=== PATIENT | female | born 2000 | race Caucasian/White ===

== ENCOUNTER 2023-07-13 15:04 | Emergency (ER) | payer OTHER, SELFPAY ==
--- NOTE | ~2023-07-13 | CT_ITS ---
EXAMINATION: CT abdomen pelvis w con DATE: 07/13/2023 16:51 INDICATION: diffuse abdominal pain TECHNIQUE: Computed tomography (CT) of the abdomen and pelvis was performed with 100 mL Omnipaque-350 intravenous contrast. Automated exposure control and iterative reconstruction technique were employe d. The dose-length product was 447.60 mGy-cm. COMPARISON: None. FINDINGS: Lower thorax: Unremarkable Liver: Normal. Biliary/Gallbladder: Gallbladder is normal. No bile duct dilation. Pancreas: No mass or duct dilation. Spleen: Normal. Adrenals:No mass. Kidneys: No mass, stone, or hydronephrosis. GI tract: Moderate distal esophageal and gastric wall edema. No small or large bowel dilation. Normal appendix. Mesentery/Peritoneum: No ascites, mass, or free air. Retroperitoneum: No mass. Pelvis: Mild bladder wall thickening in a partially distended urinary bladder. The remaining pelvic o rgans are within normal limits. Soft Tissues: Soft tissues and body wall unremarkable. Bones: No acute osseous finding. IMPRESSION: Moderate esophagitis/gastritis. Bladder wall thickening may be secondary to cystitis or inadequate distention. Reviewed, dictated and finalized at location K.
[2023-07-13 15:08] VITALS: BP 129/84; PULSE 83; RESP 15; TEMP 36.4; O2SAT 100
--- NOTE | 2023-07-13 15:29 | ED.ABDPAIN ---
HPI - Abdominal Pain General Chief Complaint: Abdominal Pain Stated Complaint: abdominal pain Time Seen by Provider: 07/13/23 15:10 Source: patient and RN notes reviewed Mode of arrival: ambulatory Limitations: no limitations History of Present Illness HPI narrative: This is a 22 year old female who presents for evaluation of abdominal pain. Patient states 2 weeks ago she went to her transitional care manager, Dr. Hathaway for possible retained tampon. She reports she was concerned about a retained tampon at that time due to increased white vaginal discharge. She reports that her transitional care manager did not find a tampon, but she was started on antibiotics for a UTI. She completed an unknown antibiotics 1 week ago. She reports intermittent lower abdominal pain for 1 week and her abdominal pain worsened today. She also reports loose stools since Saturday. She has not had stool today. She reports having 1 episode yesterday. She states eating makes her pain worse. She reports shooting pain to her upper abdomen as well. She denies nausea, vomiting, fever, chills. Related Data Allergies Allergy/AdvReac Type Severity Reaction Status Date / Time No Known Allergies Allergy Mild Verified 07/28/08 22:27 Review of Systems Constitutional: Constitutional: Denies weakness Cardiovascular: Cardiovascular: Denies syncope, Denies rapid heart rate, Denies irregular heart rhythm, Denies leg edema and Denies dyspnea Respiratory: Respiratory: Denies chest congestion, Denies hemoptysis, Denies excessive phlegm production and Denies dyspnea Gastrointestinal: Gastrointestinal: Reports abdominal pain, Denies hematochezia, Reports diarrhea and Denies vomiting Genitourinary: Genitourinary: Denies hematuria, Denies dysuria and Reports vaginal discharge Musculoskeletal: Musculoskeletal: Denies joint swelling, Denies loss of height and Denies muscle weakness Neurologic: Denies syncope, Denies focal weakness and Denies weakness PMFSH Past Medical History Medical History (Updated 07/13/23 @ 18:29 by Yoselin Stewart MD) Patient denies medical problems Surgical History Surgical History (Updated 07/13/23 @ 15:30 by Yoselin Stewart MD) No pertinent past surgical history Social History Social History (Updated 07/13/23 @ 15:30 by Yoselin Stewart MD) Smoking status: Never smoker Exam Const: General: no acute distress and alert Nutritional Appearance: well nourished Orientation/consciousness: patient oriented x3 Limitations: no limitations HENMT: Head: normal to inspection Face and sinus: normal facial exam Eyes: EOM: EOMs intact bilaterally Neck: Neck: normal visual inspection Chest: Chest palpation & inspection: normal inspection of the chest Resp: Effort & Inspection: normal respiratory effort Auscultation: clear to auscultation bilaterally Cardio: Rate: regular rate Rhythm: regular rhythm Heart sounds: no murmurs GI: GI Palp: Yes Soft to palpation, Yes Tenderness to palpation present (GI) (Diffuse), No Guarding due to palpation present (GI), No Rigid due to palpation and No Hernia present Auscultation: normal bowel sounds : External Female Exam: normal external appearance Speculum Exam - Cervix: Cervical os closed Bimanual exam- vagina & uterus: cervical motion tenderness Bimanual Exam- Adnexa, other: no masses OB/external & speculum: no herpetic lesions Other: copious amounts of yellow mucous discharge Back/Spine/Pelvis: Back: no CVA tenderness Skin: General skin exam: normal color Rashes: no rashes Wounds: no wounds Neuro: General: patient oriented x3, moves all extremities and CN's II-XI intact bilaterally Extrem: General: normal to inspection Psych: Mental Status: mental status grossly normal Affect: normal affect Attitude: cooperative Course Reevaluation(s) Reevaluation #1: I Discussed with patient CT shows signg of gastritis, esophagitis and she will be started on medication and she will need to follow u
[2023-07-13] MEDS: KETOROLAC 15 MG/ML VIAL (*BKC) IV PUSH (15:45)
[2023-07-13] MEDS: SODIUM CHLORIDE 0.9% IV 1,000 ML 999 ML IV CONT (15:45)
[2023-07-13 15:53] LABS: Basophils Absolute Auto 0.1 K/mm3 (0.0-0.1); Basophils Percent Auto 0.6 % (0.2-1.2); Eosinophils Absolute Auto 0.2 K/mm3 (0-0.3); Eosinophils Percent Auto 2.1 % (0-4.4); Hematocrit 39.3 % (37.0-47.0); Hemoglobin 13.8 g/dL (12.0-15.0); Immature Granulocyte Absolute 0.02 K/mm3 (0.00-0.031); Immature Granulocyte Percent A 0.2 % (0-0.5); Lymphocytes Percent Auto 25.7 % (18.3-44.2); Mean Corpuscular HGB Conc 35.1 g/dl (32-36); Mean Corpuscular Volume 85.4 fl (80-100); Mean Platelet Volume 10.6 fl (7.4-10.4); Monocytes Absolute Auto 0.5 K/mm3 (0.1-0.6); Neutrophils Absolute Auto 5.4 K/mm3 (1.3-6.7); Neutrophils Percent Auto 65.4 % (45.5-73.1); Platelet Count Result 286 k/mm3 (150-375); Red Cell Distribution Width 11.9 % (11.5-14.5); White Blood Count 8.2 K/mm3 (4.5-10.0)
[2023-07-13 16:03] LABS: Appearance Urine Cloudy (Clear); Bacteria Urine 1+ /hpf; Bilirubin Urine 1+ (Negative); Blood Urine Negative (Negative); Color Urine Dark Yellow (Yellow); Glucose Urine UA Negative (Negative); Ketones Urine Trace mg/dL (Negative); Leukocyte Esterase Ur Negative LEU/UL (Negative); Nitrate Urine Negative (Negative); Protein Urine 1+ mg/dL (Negative); RBC Urine 0-2 /hpf (0-2); Specific Grav Ur 1.034 (1.001-1.035); Squamous Epithelial Cell Urine Few /hpf (Few); pH Urine 5.5 (5.0-9.0)
[2023-07-13 16:05] LABS: Alanine Aminotransferase 19 U/L (6-35); Albumin Level 4.7 g/dL (3.5-5.1); Alkaline Phosphatase 58 U/L (38-126); Anion Gap 9 mmol/L (8-16); Aspartate Amino Transferase 28 U/L (14-36); Bilirubin,Total 0.8 mg/dL (0.2-1.3); Blood Urea Nitrogen 12 mg/dL (7-17); Calcium 9.4 mg/dL (8.4-10.2); Carbon Dioxide 22 mmol/L (22-30); Chloride 106 mmol/L (98-107); Estimated Glomerular Filt Rate > 60; Glucose 85 mg/dL (65-110); Lipase 50 U/L (23-300); Sodium 137 mmol/L (137-145)
[2023-07-13 16:13] LABS: Add Urine Microscopic? YES
--- NOTE | 2023-07-13 16:51 | PC.NURSE ---
pt returned to room [address] scan at this time
[2023-07-13 17:35] VITALS: BP 131/81; PULSE 95; RESP 18; O2SAT 99
[2023-07-13] MEDS: cefTRIAXone 1 GM VIAL 0.5 GM IM (18:35)
[2023-07-13 20:00] LABS: Trichomonas Vag PCR NOT DETECTED (NOT DETECTE)
[2023-07-15 11:04] LABS: Chlamydia trachomatis NOT DETECTED (NOT DETECTE); Neisseria gonorrhoeae PCR NOT DETECTED (NOT DETECTE)
== END 2023-07-13 18:48 | disposition home or self-care (01) ==
PROVIDERS: Emergency Provider General Practice
DX: K29.00 Acute gastritis without bleeding (principal); N73.0 Acute parametritis and pelvic cellulitis; K20.90 Esophagitis, unspecified without bleeding; R93.41 Abnormal radiologic findings on diagnostic imaging of renal pelvis, ureter, or bladder
CPT/HCPCS: 36415; 74177; 80053; 81001; 81025; 83690; 85025; 87086; 87088; 87491; 87591; 87661; 96361; 96372; 96374; 99284; J0696; J1885; J7030; Q9967

== ENCOUNTER 2024-06-09 10:35 | Emergency (ER) | payer OTHER, SELFPAY ==
--- NOTE | ~2024-06-09 | CT_ITS ---
CT abdomen pelvis w con Ordering provider: Alfonso Diana MD History: 23 years Female with . Right lower quadrant abdominal pain . Comparison: None. Technique: CT abdomen and pelvis with IV and without oral contrast. Automated exposure control and it erative reconstruction technique were employed. The dose-length product was 265.53 mGy-cm. 100 mL Omn ipaque 350 was given IV. Findings: VISUALIZED LOWER CHEST: Numerous nodules in both lung bases is noted.. Ossification of the patient ti mes UPPER ABDOMINAL ORGANS: Liver: Hepatomegaly. Gallbladder: Normal. Spleen: Normal. Stomach/duodenum: Normal. Pancreas: Normal. Adrenals: Normal. Kidneys: Normal. PELVIC ORGANS: The bladder is normal. BOWEL AND MESENTERY: Colon: No evidence of diverticulitis. Fecal material is seen in the colon suggestive of constipation. No evidence of appendicitis. Small Bowel: Fluid in the small bowel is seen which may indicate enteritis. No obstruction. Peritoneum/mesentery: No free air. Minimal free fluid in the pelvis. No mesenteric lymphadenopathy. RETROPERITONEUM: Normal aorta. Prominent left ovarian vein is noted No retroperitoneal lymphadenopat hy. MUSCULOSKELETAL: Superficial soft tissues: The superficial soft tissues are normal. Bones: Normal spine. IMPRESSION: 1. No evidence of appendicitis, diverticulitis or intestinal obstruction. 2. Fecal material loaded in the colon suggestive of constipation. 3. Prominent left ovarian vein which may indicate pelvic congestion syndrome. 4. Fluid in the small bowel which may indicate enteritis. 5. Hepatomegaly Reviewed, dictated and finalized at location A.
[2024-06-09 10:38] VITALS: BP 130/68; PULSE 75; RESP 16; TEMP 36.8; O2SAT 100
[2024-06-09 10:52] LABS: BEDSIDEPREGUCG Negative
[2024-06-09 11:08] LABS: Add Urine Microscopic? YES; Appearance Urine Cloudy (Clear); Bacteria Urine 3+ /hpf; Bilirubin Urine 1+ (Negative); Blood Urine Negative (Negative); Color Urine Dark Yellow (Yellow); Glucose Urine UA Negative (Negative); Ketones Urine Trace mg/dL (Negative); Leukocyte Esterase Ur Trace LEU/UL (Negative); Mucus Urine Present /lpf; Nitrate Urine Negative (Negative); Non Pathogenic Casts 0-2; Protein Urine 1+ mg/dL (Negative); RBC Urine 0-2 /hpf (0-2); Specific Grav Ur 1.025 (1.001-1.035); Squamous Epithelial Cell Urine Few /hpf (Few); pH Urine 5.5 (5.0-9.0)
[2024-06-09 11:17] LABS: Basophils Percent Auto 0.4 % (0.2-1.2); Eosinophils Absolute Auto 0.1 K/mm3 (0-0.3); Eosinophils Percent Auto 2.1 % (0-4.4); Hematocrit 38.1 % (37.0-47.0); Hemoglobin 12.8 g/dL (12.0-15.0); Immature Granulocyte Absolute 0.02 K/mm3 (0.00-0.031); Immature Granulocyte Percent A 0.3 % (0-0.5); Lymphocytes Absolute Auto 1.28 K/mm3 (0.9-3.2); Lymphocytes Percent Auto 19.2 % (18.3-44.2); Mean Corpuscular HGB Conc 33.6 g/dl (32-36); Mean Corpuscular Hemoglobin 29.8 pg (26-34); Mean Corpuscular Volume 88.6 fl (80-100); Mean Platelet Volume 10.6 fl (7.4-10.4); Monocytes Absolute Auto 0.7 K/mm3 (0.1-0.6); Monocytes Percent Auto 10.6 % (2.6-8.5); Neutrophils Absolute Auto 4.5 K/mm3 (1.3-6.7); Neutrophils Percent Auto 67.4 % (45.5-73.1); Platelet Count Result 206 k/mm3 (150-375); Red Cell Distribution Width 12.3 % (11.5-14.5); White Blood Count 6.7 K/mm3 (4.5-10.0)
[2024-06-09 11:29] LABS: Alanine Aminotransferase 12 U/L (6-35); Albumin Level 4.1 g/dL (3.5-5.1); Alkaline Phosphatase 51 U/L (38-126); Anion Gap 9 mmol/L (4-12); Aspartate Amino Transferase 17 U/L (14-36); Bilirubin,Total 0.6 mg/dL (0.2-1.3); Blood Urea Nitrogen 7 mg/dL (7-17); Calcium 8.7 mg/dL (8.4-10.2); Carbon Dioxide 26 mmol/L (22-30); Chloride 103 mmol/L (98-107); Estimated CRCL calculation 103 ml/min; Estimated Glomerular Filt Rate > 60; Glucose 85 mg/dL (65-110); Lipase 35 U/L (23-300); Potassium 3.4 mmol/L (3.4-5.0); Sodium 138 mmol/L (137-145)
[2024-06-09] MEDS: MORPHINE SULFATE (*CRX) 2 MG/ML INJ IV PUSH (13:17)
[2024-06-09] MEDS: ONDANSETRON INJ 4 MG/2 ML VIAL IV PUSH (13:17)
--- NOTE | 2024-06-09 14:56 | ED.ABDPAIN ---
HPI - Abdominal Pain General Chief Complaint: Abdominal Pain Stated Complaint: abd pain Time Seen by Provider: 06/09/24 11:55 History of Present Illness HPI narrative: This is a 23-year-old female, with no significant past medical history, presents emergency department complaining of right lower quadrant abdominal pain for the past 3 days. She states that it is began with nausea and vomiting without blood. She describes the pain as sharp and nonradiating. She denies bleeding, pain with urination, chest pain or shortness of breath. She has no other complaints at this time. Related Data Home Medications Medication Instructions Recorded Confirmed budesonide-formoterol HFA 160 inhalation 06/09/24 mcg-4.5 mcg/actuation aerosol inhaler levonorgestrel-ethinyl estradiol tablet 06/09/24 0.1 mg-20 mcg tablet loratadine 10 mg tablet (Claritin) 10 mg PO DAILY 06/09/24 06/09/24 Allergies Allergy/AdvReac Type Severity Reaction Status Date / Time No Known Allergies Allergy Mild Verified 06/09/24 11:30 Review of Systems Review of Systems: All systems reviewed & are unremarkable except as noted in HPI and below PMFSH Past Medical History Medical History Patient denies medical problems Surgical History Surgical History No pertinent past surgical history Social History Social History Smoking status: Never smoker Exam Narrative: GENERAL: Well-developed, well-nourished, and in no acute distress. HEAD: Normocephalic, atraumatic. EYES: PERRLA and EOMI. CHEST: Clear to auscultation. No respiratory distress. No wheezes rales or rhonchi HEART: Regular rate and rhythm. No murmur heard. Normal peripheral pulses. ABDOMEN: Soft, tender palpation in the right lower quadrant without rebound or guarding. Rovsing sign a positive, nondistended, normal active bowel sounds. Right CVA tenderness to palpation, no left CVA tenderness EXTREMITIES: Normal range of motion. No edema. SKIN: Warm, dry, no rash. NEURO: Alert and oriented x3. No focal deficit. Moving all 4 limbs spontaneously PSYCH: Normal mood and affect. Course Course Emergency Course: 15:00 - CT not concerning for acute intra-abdominal process. CBC unremarkable. Chemistries within normal limits. UA demonstrates changes consistent with urinary tract infection. test negative. Considering the patient's pain, I suspect pyelonephritis. Will discharge with pain medications, antibiotics and antiemetics. I discussed the findings and recommendations with the patient. Discussed return and emergency precautions including signs/symptoms of acute abdomen and intractable vomiting. The patient voiced understanding and agreement with the plan. All questions answered to her satisfaction. Vital Signs Vital signs: Vital Signs Temperature 98.3 F 06/09/24 10:38 Pulse Rate 75 06/09/24 10:38 Respiratory Rate 16 06/09/24 10:38 Blood Pressure 130/68 06/09/24 10:38 Pulse Oximetry 100 06/09/24 10:38 Oxygen Delivery Room Air 06/09/24 10:38 Temperature 98.3 F 06/09/24 10:38 Pulse Rate 75 06/09/24 10:38 Respiratory Rate 16 06/09/24 10:38 Blood Pressure 130/68 06/09/24 10:38 Pulse Oximetry 100 06/09/24 10:38 Oxygen Delivery Room Air 06/09/24 10:38 MDM - Abdominal Pain MDM Narrative Medical decision making narrative: Plan: Labs, imaging, pain control, test, reassess Differential Diagnosis Differential diagnosis: Likely acute appendicitis, calculus of kidney, constipation, diverticulitis, gastroenteritis, pancreatitis, small bowel obstruction and other (Pyelonephritis, metabolic abnormality, , other) Lab Data 06/09/24 11:02 06/09/24 11:02 Labs: Lab Results 06/09/24 06/09/24 06/09/24 Range/Units 10:45 10:46
== END 2024-06-09 15:16 | disposition home or self-care (01) ==
PROVIDERS: Emergency Medicine; Emergency Provider Preventive Medicine Aerospace Medicine
DX: N12 Tubulo-interstitial nephritis, not specified as acute or chronic (principal); Z79.899 Other long term (current) drug therapy
CPT/HCPCS: 36415; 74177; 80053; 81001; 81025; 83690; 85025; 87086; 96374; 96375; 99284; J2270; J2405; Q9967

== ENCOUNTER 2024-08-08 18:30 | Emergency (ER) | payer OTHER, SELFPAY ==
[2024-08-08 18:42] VITALS: BP 117/68; PULSE 64; RESP 16; TEMP 36.5; O2SAT 100
--- NOTE | 2024-08-08 18:43 | ED.SKABFB ---
HPI - Skin/Abscess/Foreign Bdy General Chief complaint: Skin/Abscess/Foreign Body Stated complaint: rash on body,itching Time Seen by Provider: 08/08/24 18:43 Source: patient, RN notes reviewed and old records reviewed Mode of arrival: ambulatory Limitations: no limitations History of Present Illness HPI narrative: Patient with complaints of it she papular rash that began suddenly today, covers the whole body. She denies any associated wheezing or shortness of breath. She denies any known history of food or drug allergies. She denies any new food, drink, or medication in the past couple of days. She denies any change in lotions, soaps, perfumes, detergents. She has no other concerns at this time Related Data Home Medications Medication Instructions Recorded Confirmed budesonide-formoterol HFA 160 See Rx Instructions .Route .COMPLEX 06/09/24 08/08/24 mcg-4.5 mcg/actuation aerosol inhaler levonorgestrel-ethinyl estradiol 1 tablet PO DAILY 06/09/24 08/08/24 0.1 mg-20 mcg tablet loratadine 10 mg tablet (Claritin) 10 mg PO DAILY 06/09/24 08/08/24 Allergies Allergy/AdvReac Type Severity Reaction Status Date / Time No Known Allergies Allergy Mild Verified 08/08/24 18:36 Review of Systems Review of Systems: All systems reviewed & are unremarkable except as noted in HPI and below Constitutional: Constitutional: Reports no additional constitutional complaints ENT: Reports system reviewed and no additional complaints, except as documented Cardiovascular: Cardiovascular: Reports no additional cardiovascular complaints Respiratory: Respiratory: Reports no additional respiratory complaints Gastrointestinal: Gastrointestinal: Reports no additional gastrointestinal complaints Integumentary/Breasts: Skin/Breast: Reports pruritus and Reports rash PMFSH Past Medical History Medical History Patient denies medical problems Surgical History Surgical History No pertinent past surgical history Social History Social History Smoking status: Never smoker Comments At the time of my signature, I reviewed and agree with the nursing past medical, surgical, social, and family history. There is no relevant family history pertinent to the patient complaint. Exam Const: General: cooperative, no acute distress, alert and awake Orientation/consciousness: oriented to person, oriented to place and oriented to time HENMT: Head: normal to inspection Mouth: Yes Normal oral and palatal mucosa present, Yes lip normal and Yes moist mucous membranes Resp: Effort & Inspection: normal respiratory effort and able to speak in complete sentences Auscultation: clear to auscultation bilaterally, no crackles, no rales, no rhonchi and no wheezes Cardio: Palpation: normal PMI Rate: regular rate Rhythm: regular rhythm Heart sounds: S1 normal heart sound present and S2 normal heart sound present Skin: Rashes: rashes noted Neuro: General: oriented to person, oriented to place and oriented to time Cranial nerves: Yes CN's II-XII intact bilaterally Psych: Appearance: grossly normal Thought process: Normal thought process present Insight: Good insight present (Psych) Judgement: Good judgement present (Psych) Course Course Level of Care: Express Care Visit Vital Signs Vital signs: Reviewed MDM - Skin/Abscess/Foreign Bdy MDM Narrative Medical decision making narrative: Patient with generalized papular rash. She does not have any known allergic triggers, but did eat at a restaurant last night, so unsure if she ate a new food mixed in to her dish. She does not have any wheezing or shortness of breath. She appears stable for discharge home with strict emergency department precautions. Start prednisone, Pepcid, Benadryl. First dose prednisone given in clinic. Jose Angel
[2024-08-08] MEDS: predniSONE 20 MG TABLET 60 MG PO (19:02)
== END 2024-08-08 19:08 | disposition home or self-care (01) ==
PROVIDERS: Emergency Provider Nurse Practitioner Family
DX: T78.40XA Allergy, unspecified, initial encounter (principal)
CPT/HCPCS: 99213; G0463; J7512

== ENCOUNTER 2024-12-10 20:21 | Emergency (ER) | payer OTHER, SELFPAY ==
--- NOTE | ~2024-12-10 | XR_ITS ---
HISTORY: ankle injury NO FALL NO TRAUMA COMPARISON: None TECHNIQUE: 3 views of the right ankle were performed FINDINGS: No acute fracture or dislocation. No significant soft tissue swelling. The ankle mortise is preserved. Bone mineralization is age-appropriate. IMPRESSION: Unremarkable plain film evaluation of the right ankle, as detailed above. Reviewed, dictated and finalized at location A. [facility]
--- OUTSIDE RECORDS SUMMARY | 2024-12-10 20:23 | XMS_ITS | Clinical Summary ---
Author Organization 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
--- OUTSIDE RECORDS SUMMARY | 2024-12-10 20:23 | XMS_ITS | Referral Summary ---
Author Organization [facility] Address [address] [address] Phone Care Team Providers Care Mechanical Handyman Name Role Phone Noemi Perez MD Primary Care Provider Elisha Hathaway MD Unavailable [phone] Allergies Active Allergy Reactions Criticality Noted Date Comments Cat Dander Sneezing Low 08/09/2022 Dog Dander Sneezing Low 08/09/2022 Tree And Shrub Pollen Sneezing Low 08/09/2022 Medications albuterol HFA (PROVENTIL HFA,VENTOLIN HFA,PROAIR HFA) 90 mcg/actuation inhaler Inhale 1 puff as needed 8 Active budesonide-formoter oL (SYMBICORT) 160-4.5 mcg/actuation inhaler Inhale 2 puffs 2 (two) times a day 0 Active levonorgestreL-ethi nyl estrad (LUTERA) 0.1-20 mg-mcg per tablet 2 Active loratadine (CLARITIN) 10 mg tablet Take 1 tablet (10 mg total) by mouth daily Active ondansetron ODT (ZOFRAN-ODT) 4 mg disintegrating tablet Take 1 tablet (4 mg total) by mouth every 8 (eight) hours as needed for nausea or vomiting 20 tablet 4 Active Active Problems Problem Noted Date Diagnosed Date Asthma 11/06/2016 Allergic rhinitis 11/06/2016 Resolved Problems Problem Noted Date Diagnosed Date Resolved Date Coccydynia 02/09/2016 08/09/2022 Immunizations Name Administration Dates Next Due DTaP, Unspecified 03/03/2007, 3,05/21/2002,03/24/2002,0 01/21/2002 HPV, Quadrivalent 08/10/2016,07/25/2015 Hep A, Unspecified 05/15/2012,05/22/2010 Hep B, Unspecified 11/23/2002,03/24/2002, 002,2001 HiB 11/23/2002,03/24/2002,01/21/2002 Influenza, Split 10/18/2023 Influenza, Unspecified 08/16/2022,2019,10/15/2018,09/16/2008,1 11/13/2006 MMR 03/03/2007,11/23/2002 Meningococcal B, OMV (Bexsero) 03/26/2019,2018 Meningococcal MCV4P (Menactra) 12/19/2017,2012 Pneumococcal Conjugate PCV 13 11/23/2002, 002,03/24/2002,01/21/2002 Polio, Unspecified 03/03/2007,05/21/2002, 002,01/21/2002 Tdap 07/03/2022,05/15/2012 Varicella 02/16/2003 Social History Tobacco Use Types Packs/Day Years Used Date Smoking Tobacco: Never Smokeless Tobacco: Never Tobacco Cessation:Counseling Given: Not Answered AUDIT-C Answer Date Recorded Q1: How often do you have a drink containing alcohol? Never 08/09/2022 Q2: How many drinks containi ng alcohol do you have on a typical day when you are drinking? Patient does not drink Q3: How often do you have si x or more drinks on one occasion? Never 08/09/2022 PHQ-2 Answer Date Recorded PHQ-2 Total Score (If total score is 3 or more points, staff should administer the PHQ-9) 0 10/21/2023 Personal Safety Answer Date Recorded Getting School Help Needed Not on file 10/21 Comments No Sex and Gender Information Value Date Recorded Sex Assigned at Not on file Legal Sex Female 11:30 AM CDT Gender Identity Female 07/09/2023 10:32 AM CDT Sexual Orientation Straight 07/09/2023 10 :32 AM CDT Last Filed Vital Signs Vital Sign Reading Time Taken Comments Blood Pressure 106/58 12/17/2023 11:07 AM DIESEL DINKEY ENGINEER Pulse 109 12/17/2023 11:07 AM DIESEL DINKEY ENGINEER Temperature 36.8 C (98.3 F) 12/17/2023 11:07 AM DIESEL DINKEY ENGINEER Respiratory Rate 22 12/17/2023 11:07 AM DIESEL DINKEY ENGINEER Oxygen Saturation 97% 12/17/2023 11:07 AM DIESEL DINKEY ENGINEER Inhaled Oxygen Concentration - - Weight 72.1 kg (159 lb) 12/17/2023 11:07 AM DIESEL DINKEY ENGINEER Height 160 cm (5' 3 ) 12/17/2023 11:07 AM DIESEL DINKEY ENGINEER Body Mass Index 28.17 12/17/2023 11:07 AM DIESEL DINKEY ENGINEER Plan of Treatment Not on file Insurance [facility] [employer] Care Teams Mechanical Handyman Relationship Specialty Start Date End Date Noemi Perez MD PCP - General Family Practice 08/06/22 Elisha Hathaway MD [address] [address] Referring Physician Gynecology 08/09/22
--- OUTSIDE RECORDS SUMMARY | 2024-12-10 20:23 | XMS_ITS | Continuity of Care Document ---
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 Role Phone Man Munson MD Unavailable Unavailable Allergies, Adverse Reactions, Alerts Substance Reaction Status Criticality No Known Allergies Active No Inform ation Medications Medication Instructions Dosage Effective Dates (start - stop) Status Comments Symbicort 160 mcg-4.5 mcg/actuation HFA aerosol inhaler inhale 2 puff by inhalation route 2 times every day in the morning and evening 2.00 puff - Active ProAir HFA 90 mcg/actuation aerosol inhaler INHALE 2 PUFF BY INHALATION ROUTE EVERY 4 - 6 HOURS NEEDED - Active loratadine 10 mg tablet - Active Lutera (28) 0.1 mg-20 mcg tablet take 1 tablet by oral route every day 1.00 tablet - Active Procedures Procedure Date HEALTH RISK ASSESSMENT, PATIENT-FOCUSED OFFICE [id number] BODY MASS INDEX DOCD SYST BP LT 130 MM HG DIAST BP 80-89 MM HG MOUTHPIECE SPIROMETRY BEFORE & AFTER BRONCHODIALATO R HEALTH RISK ASSESSMENT, PATIENT-FOCUSED OFFICE [id number] BODY MASS INDEX DOCD SYST BP LT 130 MM HG DIAST BP < 80 MM HG MOUTHPIECE SPIROMETRY BEFORE & AFTER BRONCHODIALATO R HEALTH RISK ASSESSMENT, PATIENT-FOCUSED OFFICE [id number] BODY MASS INDEX DOCD SYST BP LT 130 MM HG DIAST BP 80-89 MM HG MOUTHPIECE RESPIRATORY FLOW VOLUME LOOP HEALTH RISK ASSESSMENT, PATIENT-FOCUSED OFFICE [id number] MOUTHPIECE RESPIRATORY FLOW VOLUME LOOP HEALTH RISK ASSESSMENT, PATIENT-FOCUSED OFFICE [id number] BODY MASS INDEX DOCD SYST BP LT 130 MM HG DIAST BP 80-89 MM HG MOUTHPIECE RESPIRATORY FLOW VOLUME LOOP HEALTH RISK ASSESSMENT, PATIENT-FOCUSED OFFICE [id number] BODY MASS INDEX DOCD SYST BP LT 130 MM HG DIAST BP < 80 MM HG MOUTHPIECE RESPIRATORY FLOW VOLUME LOOP ALLERGY SKIN TESTS ALLERGY SKIN TESTS ID OFFICE [id number] HEALTH RISK ASSESSMENT, PATIENT-FOCUSED OFFICE [id number] BODY MASS INDEX DOCD SYST BP GE 130 - 139MM HG DIAST BP 80-89 MM HG PULMONARY SPIROMETRY, FUNCTION MOUTHPIECE HEALTH RISK ASSESSMENT, PATIENT-FOCUSED OFFICE [id number] Additional supplies, materials, & Clinic al Staff Time During A PHE BODY MASS INDEX DOCD SYST BP LT 130 MM HG DIAST BP < 80 MM HG RESPIRATORY FLOW VOLUME LOOP MOUTHPIECE HEALTH RISK ASSESSMENT, PATIENT-FOCUSED OFFICE [id number] BODY MASS INDEX DOCD SYST BP LT 130 MM HG DIAST BP < 80 MM HG MOUTHPIECE RESPIRATORY FLOW VOLUME LOOP HEALTH RISK ASSESSMENT, PATIENT-FOCUSED OFFICE [id number] BODY MASS INDEX DOCD PULMONARY SPIROMETRY, FUNCTION 19 MOUTHPIECE HEALTH RISK ASSESSMENT, PATIENT-FOCUSED OFFICE [id number] BODY MASS INDEX DOCD PULMONARY SPIROMETRY, FUNCTION 19 MOUTHPIECE Advance Directives Directive Yes / No Effective Date File Name No Information Encounters Encounter Description Practice Location Reason(s) For Visit Diagnoses Date Provider Providers Copied on Encounter [employer], [address], [place], [place], [id number] , tel: [phone] [facility] No Information 4 Munsonkareem Conway. [address] , [facility] [address], [place], [place], [address] , . tel: [phone] [facility], [address], [place], [place], [address] , tel: [phone] [facility] No Information 4 Munsonkareem Conway. [address] , [facility] [address], [place], [place], [id number] , [place]. tel: [phone] OFFICE BLXZD-HQN-OU TAILED [facility], [address], [place], [place], [id number] , tel: [phone] [facility]hma & Allergies (chief complaint) Moderate persistent asthma, uncomplicatedAllerg ic rhinitis due to pollenAllergic rhinitis due to animal hair or danderAllergy to mold 4 Vicki Jiménez . [address] [place], [place], [address] , . tel: [phone] Referring Provider: [address], [place], [address]. tel:[phone] OFFICE GIQGW-VNC-KT PANDED [facility], [address] [place] [address], [id number] , tel: [phone] [facility]ergies (chief complaint) Moderate persistent asthma, uncomplicatedAllerg ic rhinitis due to pollenAllergic rhinitis due to animal hair or danderAllergy to mold Dec-0 - 3 Munsonkareem Conway. [address] [place] [address], [id number] , . tel: [phone] Referring Provider: [address], [place], [address]. tel:[phone] OFFICE TZOGU-ODZ-FI TAILED [facility], [address], [place], [place], [address] , tel: [phone] [facility] asthma (chief complaint) allergy f/u (chief complaint) asthma (chief complaint) Moderate persistent asthma, uncomplicatedAllerg ic rhinitis due to pollenAllergic rhinitis due to animal hair or danderAllergy to mold Dimitrios-0 3 Gonzalez Irizarry. [address], [id number] , . tel: [phone] Referring Provider: [address], [place], [address]. tel:[phone] OFFICE XSWZE-DAQ-LJ TAILED [facility], [address], [place], [address] , tel: [phone] [facility] asthma (chief complaint) allergy f/u (chief complaint) Moderate persistent asthma, uncomplicatedAllerg ic rhinitis due to pollenAllergic rhinitis due to animal hair or danderAllergy to mold Dec-0 2 Gonzalez Irizarry. [address], [id number] , . tel:[phone] Referring Provider: Noemi Perez , [address] [address], [place], [address]. tel:[phone] OFFICE MHIIG-KQU-GK [facility], [address], [place], [place], [address] , tel:[phone] [facility] asthma (chief complaint) asthma-con trol (chief complaint) allergy f/u (chief complaint) Moderate persistent asthma, uncomplicatedAllerg ic rhinitis due to pollenAllergic rhinitis due to animal hair or danderAllergy to mold 2 Gonzalez Irizarry. [address] [place] [address], [id number] , . tel:[phone] Referring Provider: Francisco Javier العلي, [address] [place] [address] [address], [place], [address] . tel:[phone] OFFICE [id number]-COX-SC TAILED [facility], [address] [facility], [place], [place], [address] , [place] [phone] [facility] asthma (chief complaint) Asthma-con trol (chief complaint) allergies (chief complaint) Moderate persistent asthma, uncomplicatedAllerg ic rhinitis due to pollenAllergic rhinitis due to animal hair or dander 1 Gonzalez Irizarry. [address] [place] [address], [id number] , [place]. tel:[phone] Referring Provider: Francisco Javier العلي, [address] [place] [address] [address], [place], [address] . tel:[phone] OFFICE [id number]-XMQ-HG PANDED [facility], [address], [place], [address] , [place] tel:[phone] [facility] allergies (chief complaint) asthma (not seen for this today) (chief complaint) Allergic rhinitis due to pollenAllergic rhinitis due to animal hair or danderAllergy to mold 1 Gonzalez Irizarry. [address] [place] [address], [id number] , . tel:[phone] Referring Provider: Francisco Javier العلي, [address], [place], [address] . tel:[phone] OFFICE HJFVA-ENR-AA [facility], [address], [place], [place], [address] , tel: [phone] [facility] asthma (chief complaint) Asthma-con trol (chief complaint) allergies (chief complaint) Moderate persistent asthma, uncomplicatedAllerg ic rhinitis due to pollenAllergic rhinitis due to animal hair or dander Dimitrios-2 [address] [place] [address], [id number] , . tel:[phone] Referring Provider: Francisco Javier العلي, [address], [place], [address] . tel:[phone] [facility], [address], [place], [place], [address] , tel: [phone] [facility] asthma (chief complaint) Asthma-con trol (chief complaint) allergies (chief complaint) Moderate persistent asthma, uncomplicatedAllerg ic rhinitis due to pollenAllergic rhinitis due to animal hair or dander Dec-0 0 Gonzalez Irizarry. [address], [id number] , . tel:[phone] Referring Provider: Francisco Javier العلي, [address], [place], [address] . tel:[phone] OFFICE DKFXX-KSE-TA [facility], [address], [place], [place], [address] , tel:[phone] [facility] asthma (chief complaint) Asthma-con trol (chief complaint) allergies (chief complaint) Moderate persistent asthma, uncomplicatedAllerg ic rhinitis due to pollenAllergic rhinitis due to animal hair or dander Dimitrios- 0 Gonzalez Irizarry. [address], [id number] , [place]. tel: [phone] Referring Provider: Chelsea Logan, [address], [place], [address]. tel:[phone] OFFICE QACYN-LRW-TN [facility], [address], [place], [place], [address] , [place] tel: [phone] [facility] asthma (chief complaint) Asthma-con trol (chief complaint) allergies (chief complaint) Moderate persistent asthma, uncomplicatedAllerg ic rhinitis due to pollenAllergic rhinitis due to animal hair or dander 9 Gonzalez Irizarry. [address], [id number] , [place]. tel: [phone] Referring Provider: Francisco Javier العلي, [address], [place], [address] . tel:[phone] OFFICE TKHWP-TQD-VW [facility], [address], [place], [place], [address] , [place] tel: [phone] [facility] (chief complaint) Asthma-con trol (chief complaint) allergies (chief complaint) Moderate persistent asthma, uncomplicatedAllerg ic rhinitis due to pollenAllergic rhinitis due to animal hair or dander 9 Gonzalez Irizarry. [address] [facility], [address], [id number] , [place]. tel: [phone] Referring Provider: [address], [place], [address] . tel:[phone] [facility], [address], [place], [place], [address] , [place] tel: [phone] [facility] Moderate persistent asthma, uncomplicatedAllerg ic rhinitis due to pollenAllergic rhinitis due to animal hair or dander 8 Gonzalez Irizarry. [address] [facility], [address], [id number] , . tel: [phone] Referring Provider: [address], [place], [address] . tel:[phone] [employer], [address], [place], [place], [address] , tel: [phone] [facility] Moderate persistent asthma, uncomplicatedAllerg ic rhinitis due to pollenAllergic rhinitis due to animal hair or dander 8 Gonzalez Irizarry. [address] [facility], [address], [id number] , . tel: [phone] Referring Provider: Francisco Javier العلي, [address] [place] [address] [address], [place], [address] . tel:[phone] [employer], [address], [place], [place], [address] , tel: [phone] [facility] Allergic rhinitis due to pollenAllergic rhinitis due to animal hair or danderMild persistent asthma, uncomplicated 7 Shine Inessa . [address] [place] [address], [address], [id number] , . tel: [phone] Referring Provider: Juan C Roth, [address] [place] [address], [address] . tel:[phone] [employer], [address], [place], [place], [address] , tel: [phone] [facility] Mild persistent asthma, uncomplicatedAllerg ic rhinitis due to pollenAllergic rhinitis due to animal hair or dander 7 Silvestre Wylie . [address] [place] [address], [address], [id number] , . tel: [phone] Referring Provider: Juan C Roth, [address] [place] [address], [address] . tel:[phone] [employer], [address] [place] [address], [id number] , tel: [phone] [facility] Mild persistent asthma, uncomplicatedAllerg ic rhinitis due to pollenAllergic rhinitis due to animal hair or dander 6 Gonzalez Irizarry. [address] [place] [address], [address], [id number] , . tel: [phone] Referring Provider: Chelsea Logan [address] [facility] [address], [place], [address]. tel:[phone] [facility], [address], [place], [place], [address] , tel: [phone] [facility] Mild persistent asthma, uncomplicatedAllerg ic rhinitis due to pollenAllergic rhinitis due to animal hair or dander Dec-3 Gonzalez Irizarry. [address] [facility], [address], [id number] , . tel: [phone] Referring Provider: Chelsea Logan [address] [facility] [address], [place], [address]. tel:[phone] [facility], [address], [place], [place], [address] , tel: [phone] [facility] INTRINSIC ASTHMA, UNSPECIFIEDAllergic rhinitis due to other allergen Jan-0 Gonzalez Irizarry. [address], [id number] , . tel: [phone] Referring Provider: Samantha Nixon [address] [facility] [address], [place], [address]. tel:[phone] [facility], [address], [place], [address] , tel: [phone] [facility] INTRINSIC ASTHMA, UNSPECIFIEDAllergic rhinitis due to other allergenAcute atopic conjunctivitis Dimitrios-0 Gonzalez Irizarry. [address] [facility], [address], [id number] , . tel: [phone] Referring Provider: Samantha Nixon, [address] [facility] [address], [place], [address]. tel:[phone] [facility], [address], [place], [address] , tel: [phone] [facility] INTRINSIC ASTHMA, UNSPECIFIEDAllergic rhinitis due to other allergenAcute atopic conjunctivitis 3 Gonzalez Irizarry. [address] [facility], [address] [address], [place], [place], [address] , [place]. tel: [phone] Referring Provider: [address], [place], [address]. tel:[phone] Family History Family Member Type Diagnosis Age At Onset Brother Problem (finding) Allergies, environmenta l Payers Payer name Insurance type Covered democrat ID Leila giron(s) [facility] RAILG-CON ACCOUNTS CI [id number] Social History Type Description Quantity Date Captured Comments Alcohol Use Details Unknown Caffeine Use Details Unknown Tobacco Use Status No Information Smoking Status No Information Sex Female Chief Complaint And Reason For Visit No Information Reason For Referral Reason For Referral No Information Plan Of Treatment Date Type Action Status Appointment Lisbeth Horta - Yearly B OOKED History Of Present Illness Encounter Date Complaint History Of Prese nt Illness Asthma & Allergies Lisbeth is a 23 year old seen for follow-up of her diagnosis of asthma and allergies.Lisbeth is happy to report that she is doing well. She is not playing soccer any more and feels her symptoms are well controlled. She has no symptoms of cough, wheezing or shortness of breath. She takes Symbicort twice a day & used her albuterol last month for her allergies and was staying outdoor. There has been no ED visits, hospitalization or steroid bursts for asthma-related symptoms. She has no nasal allergy symptoms to report. Reports her spring was unremarkable. She takes Claritin as needed for her allergy symptoms and is not taking Flonase since her symptoms are well controlled. She has 2 dogs at her mom's house.ACT score = 24No fevers, vomiting or diarrhea.05/24/2021 Skin Testing: Allergens: TREES, GRASS, WEED/RAGWEED, MOLD (Alternaria), CAT, and DOG dander Asthma & Allergies Lisbeth is a 22 year old seen for follow-up of her diagnosis of asthma and allergies.Lisbeth is happy to report that she is doing well. She has no symptoms of cough, wheezing or shortness of breath. She takes Symbicort twice a day & there has been no albuterol use. There has been no ED visits, hospitalization or steroid bursts for asthma-related symptoms.She has no nasal allergy symptoms to report. She takes Claritin daily and Flonase as needed for increased allergy symptoms. She has a dog at her mom's and a cat at her dad's house.No fevers, vomiting or diarrhea.05/24/2021 Skin Testing: Allergens: TREES, GRASS, WEED/RAGWEED, MOLD (Alternaria), CAT, and DOG dander Comments: Last o ffice visit 10/11/22 and before this on 04/05/22. Remains on Symbicort 160/4.5, 2 puffs twice daily with good control. Proair MDI seldom. No problems with exercise usually but had some trouble earlier this spring (see phone call 03/18/23) and had to increase Symbicort to qid briefly with good results. Had flu shot last fallVaccinated for COVID x 2 No COVID infections. Senior this fall (2022) at [employer] this spring. 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 Comments: Allerg ens: TREES, GRASS, WEED/RAGWEED, MOLD (Alternaria), CAT, and DOG dander (05/24/21)Indoor dog x 2 (not in bedroom) at mom's house and indoor cat at dad's house. 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 Not interested in allergy shots yet. No sinusitis in the interim. allergy f/u asthma asthma Comments: Allerg ens: TREES, GRASS, WEED/RAGWEED, MOLD (Alternaria), CAT, and DOG dander (05/24/21)Indoor dog x 2 (not in bedroom) at mom's house and indoor cat at dad's house. 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 Not interested in allergy shots yet. No sinusitis in the interim. asthma Comments: Last o ffice visit 04/05/22 and before this on 10/17/21. Remains on Symbicort 160/4.5, 2 puffs twice daily with good control. Proair seldom now even for exercise. 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 Had flu shot this fallVaccinated for COVID x 2 No COVID infections. 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 allergy f/u Comments: Last o ffice visit 10/17/21 and before this on 05/24/21 (testing) Remains on Symbicort 160/4.5, 2 puffs twice daily with good control. Proair seldom now. Cristhian this fall moving on to [employer] instead of [employer] (and still exercising but will not be playing soccer)Had flu shot last fall and has been vaccinated for COVID x 2 ([employer]) but no booster. No COVID infection. 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 Comments: Allerg ens: TREES, GRASS, WEED/RAGWEED, MOLD (Alternaria), CAT, and DOG dander (05/24/21)Indoor dog x 1 (not in bedroom). Not around dad's cat much. 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 babysitting but just for one family now so not exposed to much.Meds: Loratadine 10 mg and add Fluticasone nasal spray for more symptoms. Not interested in allergy shots yet. Still spending a lot of time outside. No sinusitis in the interim. asthma asthma-control allergy f/u Asthma-control Lisbeth was see n today for asthma management. Her asthma is classified as Moderate Persistent.Since Her last visit for asthma control on 05/24/2021, She has had asthma related:-hospitalizations: NO-ER/Urgent care visits: NO-oral steroids: NO-rescue inhaler use: YES-Missed school/work: NOAsthma Control Test score: 201. Unlimited activity: None of the time (5)2. Caused shortness of breath: Once or twice a week (4)3. Interrupted sleep: Once or twice (4)4. How often using rescue med: 2 or 3 times per week (3)5. Personal rating of control: Well controlled (4)The asthma is .Known triggers include: animals, colds and exercise.Environmental exposure/control:Smoker: NOTobacco exposure: YESPets/animals: YES, 2 DOGSSpirometry was last performed on 04/25/2021. Results - MILDLY OBSTRUCTED.. allergies asthma asthma (comments) Last office vi sit 05/24/21 (testing) and before this on 04/25/21Remains on Symbicort 160/4.5, 2 puffs twice daily with good control. Proair seldom now. Has sore throat a couple of weeks ago and some increase in SOB. Went to and treated with antibiotics (neg for strep, flu, covid though)Lesly. 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 Then will be on to [employer] in instead (?still some soccer)Had flu shot again this fall and has been vaccinated for COVID x 2 ([employer]) Went to [employer] for soccer this past season. allergies (comments) Allergens: TREES, GRASS, WEED/RAGWEED, MOLD (Alternaria), CAT, and DOG dander (05/24/21)Indoor dogs x 2 (not in bedroom). Not around dad's cat much. 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 babysitting but just for one family now so not exposed to much.Meds: Loratadine 10 mg and add Fluticasone nasal spray for more symptoms. Did not add Montelukast (Singulair) as a third option for increasing symptoms in the spring/fall seasons. Not interested in allergy shots at this time.Spends a lot of time outside. No sinusitis in the interim. allergies asthma (not seen for this today) allergies (comments) Last office visit 04/25/21 and before this on 10/05/20Returning today for further evaluation of her allergies with skin testing.Allergens: TREES, CAT, and DOG only (03/11/13) Indoor dogs x 2 (not in bedroom). 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 Not around dad's cat much. Uses Loratadine 10 mg once daily year round with good results (off past week for testing). Uses Fluticasone nasal spray 1 puff each nostril prn for increased symptoms this spring (off now). More difficulty with tree pollen this spring (spent more time inside) and was not on soccer field - season will be in the fall from now on.No sinusitis in the interim. asthma (not seen for this today) (comments) Remains on Symbicort 160/4.5, 2 puffs twice dailyTakes Proair before soccer with good results asthma allergies asthma (comments) Last office vi sit 10/05/20 and before this on 04/20/20. Remains on Symbicort 160/4.5, 2 puffs twice daily More asthma trouble spring likely triggered by increase in allergen exposures.Takes Proair before soccer with good results - but none recently out of seasonShe denies nocturnal or heating and cooling technician symptomsNo problems with URIs usually.Lesly. 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 Then to [employer] in instead and no soccer.Had flu shot last fall In 07/18/20 having trouble with exertion and within 5 minutes of starting to warm up run has SOB and onset of stridor, no change in voice, but tightness in chest. No better with the Proair. 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 Got better on own and with treatment of her allergy symptoms. allergies (comments) Allergens: TREES, CAT, and DOG only (03/11/13) Indoor dogs x 2 (not in bedroom). Walks the dogs. Not around dad's cat much. 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 Also works at [employer].Uses Loratadine 10 mg once daily year round with good results. In past used Fluticasone nasal spray 1 puff each nostril prn (off now) for increased symptoms this spring. More difficulty with tree pollen this spring (spent more time inside) but not on soccer fieldNo sinusitis in the interim. Asthma-control Lisbeth was see n today for asthma management. Her asthma is classified as Moderate Persistent.Since Her last visit for asthma control on 10/05/2020, She has had asthma related:-hospitalizations: NO-ER/Urgent care visits: NO-oral steroids: NO-rescue inhaler use: YES-Missed school/work: NOAsthma Control Test score: 231. Unlimited activity: None of the time (5)2. Caused shortness of breath: Once or twice a week (4)3. Interrupted sleep: Not at all (5)4. How often using rescue med: Once a week or less (4)5. Personal rating of control: Completely controlled (5)The asthma is Well Controlled.Known triggers include: animals, colds and exercise.Environmental exposure/control:Smoker: NOTobacco exposure: YESPets/animals: YES, 2 DOGSSpirometry was last performed on 10/05/2020. Results - MILDLY OBSTRUCTED. allergies Asthma-control Lisbeth was see n today for asthma management. Her asthma is classified as Moderate Persistent.Since Her last visit for asthma control on 04/20/2020, She has had asthma related:-hospitalizations: NO-ER/Urgent care visits: NO-oral steroids: NO-rescue inhaler use: YES-Missed school/work: NOAsthma Control Test score: 241. Unlimited activity: None of the time (5)2. Caused shortness of breath: Not at all (5)3. Interrupted sleep: Not at all (5)4. How often using rescue med: Not at all (5)5. Personal rating of control: Well controlled (4)The asthma is Well Controlled.Known triggers include: animals, colds and exercise.Environmental exposure/control:Smoker: NOTobacco exposure: YESPets/animals: YES, 2 DOGSSpirometry was last performed on 04/20/2020. Results - MILDLY OBSTRUCTED. allergies (comments) Allergens: TREES, CAT, and DOG only (03/11/13) Indoor dogs x 2 (not in bedroom). Walks the dogs. Not around dad's cat much.Uses Loratadine 10 mg once daily year round with good results. In past used Fluticasone nasal spray 1 puff each nostril prn (off now) for increased symptoms this spring. More difficulty with tree pollen this spring (spent more time inside) but not on soccer fieldNo sinusitis in the interim. asthma asthma (comments) Last office vi sit 04/20/20 and before this on 10/26/19 Remains on Symbicort 160/4.5, 2 puffs twice daily (she prefers MDI over DPI Advair 250/50) since 10/26/19Has been off the Montelukast 10 mg once daily (but off this past month after reading the label) but no increase in asthma symptoms presently. 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 Had flu shot this fall.Phone call on 07/18/20 after which we added Montelukast 10 mg qd: Was having trouble with exertion and within 5 minutes of starting to warm up run has SOB and onset of stridor, no change in voice, but tightness in chest. No better with the Proair. Remains on Symbicort 160/4.5, 2 puffs BID unchanged and on daily allergy medications (Fluticasone and Loratadine). Asthma-control Lisbeth was see n today for asthma management. Her asthma is classified as Moderate Persistent.Since Her last visit for asthma control on 10/26/2019, She has had asthma related:-hospitalizations: NO-ER/Urgent care visits: NO-oral steroids: NO-rescue inhaler use: YES-Missed school/work: NOAsthma Control Test score: 231. Unlimited activity: None of the time (5)2. Caused shortness of breath: Once or twice a week (4)3. Interrupted sleep: Not at all (5)4. How often using rescue med: Not at all (5)5. Personal rating of control: Well controlled (4)The asthma is Well Controlled.Known triggers include: animals, colds and exercise.Environmental exposure/control:Smoker: NOTobacco exposure: YESPets/animals: YES, 2 DOGSSpirometry was last performed on 10/26/2019. Results - WITHIN NORMAL LIMITS. 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 More difficulty with tree pollen this spring (spent more time inside) but not on soccer fieldIndoor dog x 1 (not in [place]), no problems noted. Not around dad's cat much.No sinusitis in the interim. asthma allergies Asthma-control Lisbeth was see n today for asthma management. Her asthma is classified as Moderate Persistent.She has had asthma related:-hospitalizations: NO-ER/Urgent care visits: NO-oral steroids: NO-rescue inhaler use: YES-Missed school/work: NOAsthma Control Test score: 211. Unlimited activity: None of the time (5)2. Caused shortness of breath: 3-6 times a week (3)3. Interrupted sleep: Not at all (5)4. How often using rescue med: Not at all (5)5. Personal rating of control: Somewhat controlled (3)The asthma is Well Controlled.Known triggers include: animals, colds and exercise.Environmental exposure/control:Smoker: NOTobacco exposure: YESPets/animals: YES, 2 DOGSSpirometry was last performed on 04/16/2019. Results - WITHIN NORMAL LIMITS. asthma asthma (comments) Last office vi sit 04/16/19 and before this on 09/15/18 Using Advair 250/50, 1 click BID with good adherence, but will have increased symptoms if just misses one doseAlso notes that she is getting more easily winded.Had more trouble last spring 2018 with asthma, likely triggered by increase in allergen exposures.Uses Proair before soccer with good results as a precaution and for cough. 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 More difficulty with tree pollen this spring with increased activity (soccer) during this time.No problems around her 2 dogs (older and less active, not in her bedroom). Not around dad's cat.No sinusitis in the interim. asthma (comments) Last office vi sit 09/15/18 and before this on 03/27/18 Using Advair 100/50, 1 click BID with good adherence, but will have increased symptoms if just misses one doseAlso had more trouble this spring with asthma likely triggered by increase in allergen exposure.Uses Proair before soccer with good results as a precaution and for cough. She denies nocturnal or heating and cooling technician symptomsNo problems with URIs usually.Senior in next fall then to [employer] following year.Had flu shot last fall. asthma allergies Asthma-control Lisbeth was see n today for asthma management. Her asthma is classified as Moderate Persistent.Since Her last visit for asthma control on 09/15/2018, She has had asthma related:-hospitalizations: NO-ER/Urgent care visits: NO-oral steroids: NO-rescue inhaler use: YES-Missed school/work: NOAsthma Control Test score: 231. Unlimited activity: A little of the time (4)2. Caused shortness of breath: Not at all (5)3. Interrupted sleep: Not at all (5)4. How often using rescue med: Once a week or less (4)5. Personal rating of control: Completely controlled (5)The asthma is Well Controlled.Known triggers include: animals, colds and exercise.Environmental exposure/control:Smoker: NOTobacco exposure: NOPets/animals: YES, 2 DOGSSpirometry was last performed on 09/15/2018. allergies (comments) Allergens: TREES, CAT, and DOG only (03/11/13) Uses Loratadine 10 mg once daily year round and added the Fluticasone nasal spray 1 puff each nostril once daily. More difficulty with tree pollen this spring with increased activity (soccer) during this time.No problems around her 2 dogs (older and less active, not in her bedroom). Not around dad's cat now. No sinusitis in the interim. Functional Status Date Functional Assessmen t No Information Instructions Date Instruction Additional Infor maria dolores - Recommend continui ng with pet dander avoidance. Related to Allergic rhinitis due to animal hair or dander - Recommend continui ng with mold mitigation. Related to Allergy to mold - [facility] for your rhinitis.- Please continue with your present nasal medications or treatment that includes Claritin 10 mg as needed. Call for increasing symptoms or difficulty with medications. Related to Allergic rhinitis due to pollen - Discussed that Citlalli tracy's spirometry showed no evidence of intrathoracic airway obstruction with an FEV1 of 3.12 (97 %) and there is no significant bronchodilatory response of -4% with an FEV1 2.98 (93%). There is no evidence to suggest an underlying needed for an ICS. Recommend continuing with the current treatment plan with Symbicort 160/4.5 2 puffs twice a day, rinse mouth with each dose & ProAir 2 puffs every 4-6 hours as needed and treat accordingly. Related to Moderate persistent asthma, uncomplicated - Recommend continui ng with mold mitigation. Related to Allergy to mold - Recommend continui ng with pet dander avoidance. Related to Allergic rhinitis due to animal hair or dander - Discussed that Citlalli tracy's spirometry did not show any evidence of intrathoracic airway obstruction with no significant bronchodilatory response. Recommend continuing with the current treatment plan with no changes.- For the asthma, recommend continuing with Symbicort 160/4.5 2 puffs twice a day, rinse mouth with each dose & ProAir 2 puffs every 4-6 hours as needed.- Recommend the Flu Vaccine. Related to Moderate persistent asthma, uncomplicated Continue to avoid an imal dander exposures. Related to Allergic rhinitis due to animal hair or dander We reviewed appropri ate environmental control measures for your rhinitis.Please continue with your present nasal medications or treatment that includes Loratadine 10 mg once daily adding Fluticasone 2 puffs each nostril once daily as needed. Call for increasing symptoms or difficulty with medications. Refills provided or call when more are needed. Related to Allergic rhinitis due to pollen As above. Related to Aller gy to mold Pulmonary functions performed today with good effort were WITHIN NORMAL LIMITS for age and height. Asthma Control Test (normal >19) = 21. Asthma is overall stable. Continue with present daily controller medication (Symbicort 160/4.5, 2 puffs twice daily) unchanged. I reviewed the benefits and risks including side effects of this medication. We discussed the use of rescue medication (Symbicort extra doses or Albuterol inhaler). Please call for the frequent use of your rescue inhaler (beyond that discussed above) or difficulties with your asthma causing frequent night time awakenings Related to Moderate persistent asthma, uncomplicated Medication management As above . Related to Aller gy to mold We reviewed appropri ate environmental control measures for your rhinitis.Please continue with your present nasal medications or treatment that includes Loratadine 10 mg once daily and adding Fluticasone nasal spray for increasing symptoms. Call for increasing symptoms or difficulty with medications. Refills provided or call when more are needed. Related to Allergic rhinitis due to pollen Minimize dander exposures when p ossible Related to Allergic rhinitis due to animal hair or dander Pulmonary functions performed today with good effort were MILDLY OBSTRUCTED and slightly lower than last couple of tests. Asthma Control Test (normal >19) = 25. Asthma is overall stable. Continue with present daily controller medication (Symbicort 160/4.5, 2 puffs twice daily) unchanged. I reviewed the benefits and risks including side effects of this medication. We discussed the use of rescue medication (albuterol). Please call for the frequent use of your rescue inhaler (beyond that discussed above) or difficulties with your asthma causing frequent night time awakenings Related to Moderate persistent asthma, uncomplicated Medication management We reviewed appropri ate environmental control measures for your rhinitis.Please continue with your present nasal medications or treatment that include Loratadine 10 mg once daily year round adding Fluticasone nasal spray, 2 puffs each nostril daily in the peak seasons (spring/fall) for additional control. Call for increasing symptoms or difficulty with medications. Refills provided or call when more are needed. Related to Allergic rhinitis due to pollen Minimize indoor dander exposures . Related to Allergic rhinitis due to animal hair or dander As above. Related to Aller gy to mold Pulmonary functions performed today with good effort were WITHIN NORMAL LIMITS for age and height. Asthma Control Test (normal >19) = 25. Asthma is overall stable. Continue with present daily controller medication (Symbicort 160/4.5, 2 puffs twice daily) unchanged. I reviewed the benefits and risks including side effects of this medication. We discussed the use of rescue medication (Proair). Please call for the frequent use of your rescue inhaler (beyond that discussed above) or difficulties with your asthma causing frequent night time awakenings Related to Moderate persistent asthma, uncomplicated Medication management Continue to avoid in door pet danders as much as possible, especially cats. Related to Allergic rhinitis due to animal hair or dander We reviewed appropri ate environmental control measures for your rhinitis.Please continue with your present nasal medications or treatment that includes Fluticasone and Cetirizine daily in allergy seasons. Consider Immunotherapy in the long run. Call for increasing symptoms or difficulty with medications. Refills provided or call when more are needed. Related to Allergic rhinitis due to pollen Pulmonary functions performed today with good effort were WITHIN NORMAL LIMITS for age and height. Asthma Control Test (normal >19) = 20. Asthma is overall stable. Continue with present daily controller medication (Symbicort 160/4.5, 2 puffs twice daily and as needed) unchanged. I reviewed the benefits and risks including side effects of this medication. We discussed the use of rescue medication (Proair). Please call for the frequent use of your rescue inhaler (beyond that discussed above) or difficulties with your asthma causing frequent night time awakeningsRecommend COVID booster 6 months after last dose. Related to Moderate persistent asthma, uncomplicated Medication management Outdoor MOLD avoidan ce measures: Minimize outside exposure during peak mold count days (you can monitor mold counts at http://www.aaaai.org/global/ced-mnhjut-e ounts.aspx or http://pollen.aaaai.org/)At the end of a long day of outside exposure, come in to air conditioning if possible, remove and launder clothing, and shower/shampoo to remove as much mold as possible before going to bed. Keep windows at home and in car closed during your mold seasons. Avoid outdoor activities that increase exposure to mold such as grass mowing, raking leaves, and mulching. Consider wearing a new filtering paper mask if these jobs are unavoidable. Stay inside while others are performing these outside activities if possible. Related to Allergy to mold Allergy skin testing was successfully performed today.You reacted to TREES, GRASS, WEED/RAGWEED, MOLD (Alternaria), CAT, and DOG dander.You did not react to house dust mites or cockroach.Reviewed POLLEN Avoidance Measures: Minimize outside exposure during peak pollen count days (you can monitor pollen counts at http://www.aaaai.org/global/eoy-huxvya-z ounts.aspx or http://pollen.aaaai.org/)Pollen counts are typically lower on rainy, cloudy or windless days. At the end of a long day of outside exposure, come in to air conditioning if possible, remove and launder clothing, and shower/shampoo to remove as much pollen as possible before going to bed. Keep windows at home and in car closed during your pollen seasons. Avoid outdoor activities that increase exposure such as mowing, power trimming/blowing and consider wearing a new filtering paper mask if these jobs are unavoidable. Stay inside while others are performing these outside activities if possible.Medications: resume daily Loratadine 10 mg and add Fluticasone nasal spray for more symptoms. Also may add Montelukast (Singulair) as a third option for increasing symptoms in the spring/fall seasons.In the long run would consider Immunotherapy (5 year) for best control with least requirement for medications. Related to Allergic rhinitis due to pollen You remain quite all ergic to dog and cat danders. Continue to avoid indoor exposures to pets as much as possible. Related to Allergic rhinitis due to animal hair or dander Medication management Minimize indoor dog dander exposuresContinue to avoid indoor cat dander exposures. Related to Allergic rhinitis due to animal hair or dander We reviewed appropri ate environmental control measures for your rhinitis.Please continue with your present nasal medications or treatment that includes Loratadine 10 mg daily along with Fluticasone nasal spray, 1-2 puffs each nostril daily especially in the pollen seasons. Call for increasing symptoms or difficulty with medications. Refills provided or call when more are needed.Considering retesting so will need to stop Loratadine for a week prior. Would be interested in Immunotherapy if new allergies noted on the retesting. Related to Allergic rhinitis due to pollen Pulmonary functions performed today with good effort were MILDLY OBSTRUCTED. Asthma Control Test (normal >19) = 23. Asthma is overall stable. Continue with present daily controller medication (Symbicort 160/4.5, 2 puffs twice daily) unchanged. I reviewed the benefits and risks including side effects of this medication. We discussed the use of rescue medication (Proair). Please call for the frequent use of your rescue inhaler (beyond that discussed above) or difficulties with your asthma causing frequent night time awakenings Related to Moderate persistent asthma, uncomplicated Medication management Minimize dog dander exposures. Avoid indoor cat dander exposure. Related to Allergic rhinitis due to animal hair or dander We reviewed appropri ate environmental control measures for your rhinitis.Please continue with your present nasal medications or treatment that includes Loratadine 10 mg once daily but resume a nasal steroid (like Nasacort AQ, 2 puffs each nostril once daily) for help with recent increase in rhinorrhea (? being off Montelukast may have increased this too). May need to re-test in future to see if additional indoor allergens involved. Call for increasing symptoms or difficulty with medications. Refills provided or call when more are needed. Related to Allergic rhinitis due to pollen Pulmonary functions performed today with good effort were MILDLY OBSTRUCTED. Asthma Control Test (normal >19) = 24. Asthma is overall stable. Continue with present daily controller medication (Symbicort 160/4.5, 2 puffs twice daily) unchanged. Will hold on the Montelukast for now. May need to resume next spring if increasing asthma. I reviewed the benefits and risks including side effects of this medication. We discussed the use of rescue medication (Proair). Please call for the frequent use of your rescue inhaler (beyond that discussed above) or difficulties with your asthma causing frequent night time awakeningsFlu shot done already. Related to Moderate persistent asthma, uncomplicated Medication management We reviewed appropri ate environmental control measures for your rhinitis.Please continue with your present nasal medications or treatment that includes Loratadine 10mg once daily year round, and will add Fluticasone if necessary for increasing symptoms. Call for increasing symptoms or difficulty with medications. Refills provided or call when more are needed. Related to Allergic rhinitis due to pollen Pulmonary functions performed today with good effort were MILDLY OBSTRUCTED and lower than previous values. Asthma Control Test (normal >19) = 23.Asthma is overall stable. Continue with present daily controller medication (Symbicort 160/4.5, 2 puffs twice daily) unchanged. I reviewed the benefits and risks including side effects of this medication. We discussed the use of rescue medication (Proair inhaler) and an Asthma Action Plan. Please call for the frequent use of your rescue inhaler (beyond that discussed above) or difficulties with your asthma causing frequent night time awakenings Related to Moderate persistent asthma, uncomplicated Medication management Pulmonary functions performed today with good effort were WITHIN NORMAL LIMITS for age and height. Asthma Control Test (normal >19) = 21. Asthma has not been optimally controlled (on Advair 250) requiring a change in medication or additional medication. I recommend switching to Symbicort 160/4.5, 2 puffs twice daily (she prefers MDI over DPI devices anyway)I reviewed the benefits and risks including side effects of this medication. We discussed the use of rescue medication (Proair) and an Asthma Action Plan. Please call for the frequent use of your rescue inhaler (beyond that discussed above) or difficulties with your asthma causing frequent night time awakenings, difficulties with your ability to exercise, or prolonged cough associated with viral colds.Flu shot done already Related to Moderate persistent asthma, uncomplicated Medication management Continue to minimize dog dander exposures with none in bedroom. Related to Allergic rhinitis due to animal hair or dander We reviewed appropri ate environmental control measures for your rhinitis.Please continue with your present nasal medications or treatment that include Cetirizine 10 mg once daily and will add the Fluticasone nasal spray in the spring. Call for increasing symptoms or difficulty with medications. Refills provided or call when more are needed. Related to Allergic rhinitis due to pollen Continue to avoid having dogs in bedroom Related to Allergic rhinitis due to animal hair or dander We reviewed appropri ate environmental control measures for your rhinitis.Please continue with your present nasal medications or treatment that include Fluticasone nasal spray in allergy seasons (spring especially). and remain on daily Loratadine 10 mg year round. Call for increasing symptoms or difficulty with medications. Refills provided or call when more are needed. Related to Allergic rhinitis due to pollen Pulmonary functions performed today with good effort were WITHIN NORMAL LIMITS for age and height. Asthma Control Test (normal >19) = 23. Asthma is overall stable but had more trouble with allergies this spring while playing soccer. Continue with present daily controller medication but will increase strength (Advair 250/50 1 click twice daily). I reviewed the benefits and risks including side effects of this medication. We discussed the use of rescue medication (Proair) and an Asthma Action Plan. Please call for the frequent use of your rescue inhaler (beyond that discussed above) or difficulties with your asthma causing frequent night time awakenings Related to Moderate persistent asthma, uncomplicated Medication management Assessments Type Assessment Date No Information Patient Care Teams Name Effective Dates (start - stop) Status Members No Information
--- OUTSIDE RECORDS SUMMARY | 2024-12-10 20:23 | XMS_ITS | Clinical Summary ---
Author Organization [facility] Address [address] [place] [address] Care Team Providers Care Risk Consultant Name Role Phone Chelsea Logan MD Primary Care Provider [phone] Chelsea Logan MD Unavailable Source Comments [facility],non-owned Affiliates and Associated Physician Practices is amultiple site organization consisting of ambulatory clinics and hospital sitesin [place], [place], [place] and [place]. This disclosure is being madepursuant to the Care Everywhere program and may not contain all information available regarding this patient. Last updated 18.[facility] Allergies No known active allergies Medications * Be aware that medications may not be up to date on this document. Alwaysverify current medications with the patient. Medication Sig Dispensed Refills Start Date End Date Status loratadine (CLARITIN) 10 MG tablet Take 10 mg by mouth once daily Active PROAIR HFA 108 (90 BASE) MCG/ACT inhaler INL 2 PFS PO Q 4 TO 6 H PRN 0 01/14/2018 Active ADVAIR DISKUS 100-50 MCG/DOSE inhaler INL 1 PUFF PO Q 12 H 5 12/28/2017 Active desmopressin (DDAVP) 0.2 MG tabletIndications:N octurnal Enuresis Take 3 tablets by mouth at bedtime Reasons: Bedwetting 90 tablet 5 01/30/2018 Active fluticasone propionate (FLONASE) 50 MCG/ACT nasal spray [employer] 2 sprays into each nostril once daily 1 bottles 5 01/30/2018 Active Additional Information Patient not taking.Reported on 09/28/2020 levonorgestrel-ethi nyl estradiol (ALESSE; LEVLITE; AVIANE; LUTERA; LESSINA; SRONYX) 0.1-20 MG-MCG tablet 02/08/2020 Active SYMBICORT 160-4.5 MCG/ACT inhaler Inh[place] 2 puffs by mouth 2 times daily 03/14/2020 Active ADVAIR DISKUS 250-50 MCG/DOSE inhaler Inhale 1 puff by mouth as needed 10/03/2019 Active VENTOLIN HFA 108 (90 Base) MCG/ACT inhaler Inhale 1 puff by mouth as needed 01/08/2020 Active Loratadine 10 MG Take 1 tablet by mouth once daily Active desmopressin (DDAVP) 0.01 % nasal spray [employer] 1 spray into the nose at bedtime 5 mL 11 05/26/2020 Active mirabegron ER 24hr (MYRBETRIQ) 25 MG tabletIndications:O veractive Bladder,Urinary Incontinence Take 1 tablet by mouth every morning Reasons: Overactive Bladder, Urinary Incontinence 30 tablet 11 09/28/2020 Active imipramine (TOFRANIL) 10 MG tablet Start with 1 tablet at night for 4 nights then increase to 2 tabs at night 60 tablet 3 09/28/2020 Active Active Problems Problem Noted Date Diagnosed Date Coccydynia 02/09/2016 Family History Medical History Relation Name Comments Nocturnal enuresis Father Nocturnal enuresis Maternal Grandmother Relation Name Status Comments Father Maternal Grandmother Social History Tobacco Use Types Packs/Day Years Used Date Smoking Tobacco: Never Smokeless Tobacco: Never Alcohol Use Standard Drinks/Week Comments Never 0 (1 standard drink = 0.6 oz pur e alcohol) AUDIT-C Answer Date Recorded Q1: How often do you have a drink containing alc ohol? Never 05/26/2020 Average Number of Drinks Not on file 020 Frequency of Binge Drinking Not on file 05/05 Sex and Gender Information Value Date Recorded Sex Assigned at Not on file Gender Identity Not on file Sexual Orientation Not on file Last Filed Vital Signs Vital Sign Reading Time Taken Comments Blood Pressure 112/76 05/26/2020 11:03 AM CDT Pulse - - Temperature 36.6 C (97.8 F) 02/09/2016 2:08 PM CDT Respiratory Rate 18 02/09/2016 2:08 PM CDT Oxygen Saturation - - Inhaled Oxygen Concentration - - Weight 57.6 kg (127 lb) 05/26/2020 11:03 AM CDT Height 160 cm (5' 3 ) 05/26/2020 11:03 AM CDT Body Mass Index 22.5 05/26/2020 11:03 AM CDT Plan of Treatment Health Maintenance Due Date Last Done Comments PAP SMEAR 2001 HIV SCREENING 2016 HPV VACCINE (1 - 3-dose series) 2016 CHLAMYDIA/GONORRHEA SCREENING 2017 MENINGOCOCCAL (Group B) VACC INE (1 of 2 - Standard) 2017 HEPATITIS C SCREENING 11/15/2019 DTAP/TDAP/TD VACCINES (1 - Tdap) 2020 HEPATITIS B VACCINE (1 of 3 - 19+ 3-dose series) 2020 COVID-19 VACCINE (1 - 2023-2 5 season) 2024 INFLUENZA VACCINE (#1) 2024 DEPRESSION SCREENING 11/04/2024 ZOSTER VACCINE (1 of 2) 2051 HIB VACCINE Aged Out No longer eligi ble based on patient's age to complete this topic MENINGOCOCCAL VACCINE Aged Out No skye aries eligible based on patient's age to complete this topic PNEUMOCOCCAL VACCINE Aged Out No long er eligible based on patient's age to complete this topic Care Teams Risk Consultant Relationship Specialty Start Date End Date Chelsea Logan MD [address] [place] [address] [address] [place] [address] PCP - General 05/17/20 Chelsea Logan MD [facility] [address] [place] [address] Pediatrics 05/17/20
--- OUTSIDE RECORDS SUMMARY | 2024-12-10 20:23 | XMS_ITS | Clinical Summary ---
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 Gender Identity Not on file Sexual Orientation Not on file Plan of Treatment Health Maintenance Due Date Last Done Comments Hepatitis C Virus (HCV) Screening 2001 Human Papillomavirus (HPV) Immunization (1 - 3-dose series) 2016 Meningococcal B Immunization (1 of 2 - Standard) 2017 Pap Smear 2022 Influenza Immunization (#1) 2024 09/16/2008, 1 11/13/2006 SARS-COV-2 Immunization ( season) 2024 Respiratory Syncytial Virus (RSV) Immunization (Adult) (1 - 1-dose 75+ series) 2076 Hepatitis B Immunization Completed 003, 03/24/2002, 01/21/2002, Additional history exists Pneumococcal Immunization Combined Completed 11/23/2002, 05/21/2002, 03/24/2002, Additional history exists DTaP/Tdap/Td Immunization Discontinued 2011, 03/03/2007, 03/05/2003, Additional history exists TdaP Immunization Completed 05/15/2012 Meningococcal Immunization (ACWY) Aged Out 05/26/2013 No longer eligible based on patient's age to complete this topic Rotavirus Immunization Aged Out No lo nger eligible based on patient's age to complete this topic
--- OUTSIDE RECORDS SUMMARY | 2024-12-10 20:23 | XMS_ITS | Encounter Summary ---
Author Organization [facility] Address [address] [place] [address] Care Team Providers Care Teaseler Name Role Phone Unavailable Primary Care Provider Unavailabl e Encounter Details Date Type Department Care Team (Late st Contact Info) Description 2001 Outpatient Historical [facility] Hearing Services [facility] [id number] [place] [address] Belkys Chopra AU.D [address] [place] [phone] Social History Tobacco Use Types Packs/Day Years Used Date Smoking Tobacco: Never Assessed Comments Unknown Sex and Gender Information Value Date Recorded Sex Assigned at Not on file 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
--- OUTSIDE RECORDS SUMMARY | 2024-12-10 20:23 | XMS_ITS | Encounter Summary ---
Author Organization [facility] Address [address] [facility] Attn: [place] [address] Care Team Providers Care Supervisor Forming Department Name Role Phone Unavailable Primary Care Provider Unavailabl e Encounter Details Date Type Department Care Team (Late st Contact Info) Description 2001 Inpatient Historical Taya Puckett MD NO ADDRESS ON FILE Danae Shore MD [address] [place] [id number] [facility]-NO C/DELIVERY (Primary Dx) Social History Tobacco Use Types Packs/Day Years Used Date Smoking Tobacco: Never Assessed Comments Unknown Sex and Gender Information Value Date Recorded Sex Assigned at Not on file 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
--- OUTSIDE RECORDS SUMMARY | 2024-12-10 20:23 | XMS_ITS | Referral Summary ---
Author Organization [facility] Address [address] [facility] [place] [address] Care Team Providers Care Opinion Polls Survey Worker Name Role Phone Chelsea Logan MD Primary Care Provider [phone] Chelsea Logan MD Unavailable Source Comments [facility],non-owned Affiliates and Associated Physician Practices is amultiple site organization consisting of ambulatory clinics and hospital sitesin [place], [place], [place] and [place]. This disclosure is being madepursuant to the Care Everywhere program and may not contain all information available regarding this patient. Last updated 18.[facility] Allergies No known active allergies Medications * [...] fluticasone propionate (FLONASE) 50 MCG/ACT nasal spray [employer] 2 sprays into each nostril once daily [...] Active desmopressin (DDAVP) 0.01 % nasal spray [place] 1 spray into the nose at bedtime [...] Problem Noted Date Diagnosed Date Coccydynia 02/09/2016 Social History Tobacco Use Types Packs/Day Years [...] 05/26/2020 11:03 AM CDT Plan of Treatment Not on file Care Teams Opinion Polls Survey Worker Relationship Specialty Start Date End Date Chelsea Logan MD [address] [facility] [address] [place] [address] PCP - General 05/17/20 Chelsea Logan MD [address] [facility] [address] [place] [address] Pediatrics 05/17/20
--- OUTSIDE RECORDS SUMMARY | 2024-12-10 20:23 | XMS_ITS | Encounter Summary ---
Author Organization [facility] Address [address] [place] [address] Care Team Providers Care Dining Room Tables Set Up Attendant Name Role Phone Unavailable Primary Care Provider Unavailabl e Encounter Details Date Type Department Care Team (Late st Contact Info) Description 2001 Outpatient Historical [facility]s - [facility] [address] [facility] [address] [address] Taya Puckett MD NO ADDRESS ON FILE Social History Tobacco Use Types Packs/Day Years Used Date Smoking Tobacco: Never Assessed Comments Unknown Sex and Gender Information Value Date Recorded Sex Assigned at Not on file 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
--- OUTSIDE RECORDS SUMMARY | 2024-12-10 20:23 | XMS_ITS | Patient Health Summary ---
Author Organization [facility] Address [address] [place] [address] Care Team Providers Care State Attorney Name Role Phone Chelsea Logan MD Primary Care Provider Chelsea Logan MD Unavailable Note from [facility],non-owned Affiliates and Associated Physician Practices is amultiple site organization consisting of ambulatory clinics and hospital sitesin [place], [place], [place] and [place]. This disclosure is being madepursuant to the Care Everywhere program and may not contain all information available regarding this patient. Last updated 18.[facility] Allergies No known active allergies Medications * Be aware that medications may not be up to date on this document. Alwaysverify current medications with the patient. * loratadine (CLARITIN) 10 MG tablet Take 10 mg by mouth once daily * PROAIR HFA 108 (90 BASE) MCG/ACT inhaler(Started 01/14/2018) INL 2 PFS PO Q 4 TO 6 H PRN * ADVAIR DISKUS 100-50 MCG/DOSE inhaler(Started 12/28/2017) INL 1 PUFF PO Q 12 H 5 refills left * desmopressin (DDAVP) 0.2 MG tablet(Started 01/30/2018) Take 3 tablets by mouth at bedtime Reasons: Bedwetting 5 refills remaining * fluticasone propionate (FLONASE) 50 MCG/ACT nasal spray(Started 01/30/2018) [employer] 2 sprays into each nostril once daily 5 refills remaining * levonorgestrel-ethinyl estradiol (ALESSE; LEVLITE; AVIANE; LUTERA; LESSINA; SRONYX) 0.1-20 MG-MCG tablet(Started 02/08/2020) * SYMBICORT 160-4.5 MCG/ACT inhaler(Started 03/14/2020) Inhale 2 puffs by mouth 2 times daily * ADVAIR DISKUS 250-50 MCG/DOSE inhaler(Started 10/03/2019) Inhale 1 puff by mouth as needed * VENTOLIN HFA 108 (90 Base) MCG/ACT inhaler(Started 01/08/2020) Inhale 1 puff by mouth as needed * Loratadine 10 MG Take 1 tablet by mouth once daily * desmopressin (DDAVP) 0.01 % nasal spray(Started 05/26/2020) [place] 1 spray into the nose at bedtime 11 refills by 05/26/2021 * mirabegron ER 24hr (MYRBETRIQ) 25 MG tablet(Started 09/28/2020) Take 1 tablet by mouth every morning Reasons: Overactive Bladder, Urinary Incontinence 11 refills by 09/28/2021 * imipramine (TOFRANIL) 10 MG tablet(Started 09/28/2020) Start with 1 tablet at night for 4 nights then increase to 2 tabs at night 3 refills by 09/28/2021 Active Problems Problem Noted Date Diagnosed Date [...] Mass Index 22.5 05/26/2020 11:03 AM CDT Procedures * SODIUM BLOOD(Performed 07/21/2020) Performed for Hyponatremia * URINALYSIS W/MICROSCOPIC NO CULTURE(Performed 01/30/2018) Performed for Nocturnal enuresis * CALCIUM/CREAT RATIO URINE RANDOM PANEL(Performed 01/30/2018) Performed for Nocturnal enuresis * CULTURE URINE(Performed 01/30/2018) Performed for Nocturnal enuresis Results * SODIUM BLOOD (07/21/2020 10:42 AM CDT) Pathologist [facility] Sodium 140 135 - 146 mmol/L [facility] Comment: Test Performed at: [facility] [address] [place] [address] REYNA TAI DO,MPH Blood BLOOD SPECIMEN / Unknown 07/21/2020 10:42 AM CDT 07/21/2020 10:43 AM CDT Patricia Shah MD LAB - CHEMISTRY [place] [place] Performing Organization Address City/State/[facility] Co de Phone Number [facility] [address] [place] [address] * (ABNORMAL) URINALYSIS W/MICROSCOPIC NO CULTURE (01/30/2018 2:32 PM CDT) Color UA Yellow Straw, Yellow 01/30/2018 3:24 PM CDT [facility] Clarity UA Slt Cloudy(A) Clear 01/30/2018 3:24 PM CDT [facility] Glucose UA Negative Negative 01/30/2018 3:24 PM CDT [facility] Bilirubin UA Negative Negative 01/30/2018 3:24 PM CDT [facility] Ketone UA Negative Negative 01/30/2018 3:24 PM CDT [facility] Specific Rand UA 1.015 1.005 - 1.030 01/30/2018 3:24 PM CDT [facility] Blood UA Negative Negative 01/30/2018 3:24 PM CDT [facility] pH UA 5.0 5.0 - 8.0 pH 01/30/2018 3:24 PM CDT [facility] Protein UA Negative Negative 01/30/2018 3:24 PM CDT [facility] Urobilinogen UA Negative Negative mg/dL 01/30/2018 3:24 PM CDT [facility] Nitrite UA Negative Negative 01/30/2018 3:24 PM CDT [facility] Leukocyte UA Negative Negative 01/30/2018 3:24 PM CDT [facility] RBC UA 0-5 0-5, None Seen # /hpf 01/30/2018 3:24 PM CDT [facility] WBC UA 0-5 0-5, None Seen # /hpf 01/30/2018 3:24 PM CDT [facility] Bacteria UA Trace(A) None Seen 01/30/2018 3:24 PM CDT [facility] Squamous Epithelial Cells 6-10(A) None Seen, 0-2, 3-5 /hpf 01/30/2018 3:24 PM CDT [facility] Mucus UA 1+ /LPF 01/30/2018 3:24 PM CDT [facility] Urine URINE SPECIMEN OBTAINED BY CLEAN CATCH PROCEDURE / Unknown Collection / Unknown 01/30/2018 2:32 PM CDT 01/30/2018 2:50 PM CDT Narrative [facility] - 01/30/2018 3:24 PM CDT Marlena Morris APRN-RAMP BOSS LAB - URINALYS IS ORDERABLES [facility] [address] [place] [address] * CULTURE URINE (01/30/2018 2:32 PM CDT) Culture Urine 10,000-50,000 CFU/mL urogenital susy SWATHI 01/31/2018 3:52 PM CDT [facility] MICRO[facility]OLOG[facility] Urine URINE SPECIMEN OBTAINED BY CLEAN CATCH PROCEDURE / Unknown Collection / Unknown 01/30/2018 2:32 PM CDT 01/30/2018 2:50 PM CDT Marlena Morris APRN-RAMP BOSS LAB - MICROBIO LOGY ORDERABLES [facility] MICROBIOLOGY [address] [place] [address], [facility] [phone] * CALCIUM/CREAT RATIO URINE RANDOM PANEL (01/30/2018 2:32 PM CDT) Calcium Urine 13.89 mg/dL 01/30/2018 4:05 PM CDT [facility] Creatinine Urine 80.60 mg/dL 01/30/2018 4:05 PM CDT [facility] Calcium/Creatin ine Ratio Urine 0.17 01/30/2018 4:05 PM CDT [facility] Urine URINE SPECIMEN OBTAINED BY CLEAN CATCH PROCEDURE / Unknown Collection / Unknown 01/30/2018 2:32 PM CDT 01/30/2018 2:50 PM CDT Narrative [facility] - 01/30/2018 4:05 PM CDT Normal <0.16 Borderline 0.16-0.20 Abnormal >0.20 Marlena Morris APRN-RAMP BOSS LAB - URINE CH EMISTRY ORDERABLES [facility] [address] [place] [address] Care Teams State Attorney Relationship Specialty Start Date End Date Chelsea Logan MD [address] [place] [address] PCP - General 05/17/20 Chelsea Logan MD [address] [place] [address] Pediatrics 05/17/20
--- OUTSIDE RECORDS SUMMARY | 2024-12-10 20:23 | XMS_ITS | Clinical Summary ---
Author Organization [facility] Address [address] [address] Phone Care Team Providers Care Tiler'S Assistant Name Role Phone Noemi Perez MD Primary Care Provider Elisha Hathaway MD Unavailable [phone] Allergies Active Allergy Reactions Criticality Noted Date [...] Unspecified 03/03/2007,05/21/2002, 002,01/21/2002 Tdap 07/03/2022,05/15/2012 Varicella 02/16/2003 Surgical History Surgery Date Site/Laterality Comments NO PAST SURGERIES Medical History Medical History Date Comments Asthma Allergies Family History Medical History Relation Name Comments No Known Problems Father Breast cancer Father's Sister No Known Problems Mother Relation Name Status Comments Father Father's Sister Other Mother Social History Tobacco Use Types Packs/Day Years [...] Orientation Straight 07/09/2023 10 :32 AM CDT Obstetrics History Last Filed Vital Signs Vital Sign Reading Time Taken Comments Blood Pressure 106/58 12/17/2023 11:07 AM SERVICE DOG TRAINER Pulse 109 12/17/2023 11:07 AM SERVICE DOG TRAINER Temperature 36.8 C (98.3 F) 12/17/2023 11:07 AM SERVICE DOG TRAINER Respiratory Rate 22 12/17/2023 11:07 AM SERVICE DOG TRAINER Oxygen Saturation 97% 12/17/2023 11:07 AM SERVICE DOG TRAINER Inhaled Oxygen Concentration - - Weight 72.1 kg (159 lb) 12/17/2023 11:07 AM SERVICE DOG TRAINER Height 160 cm (5' 3 ) 12/17/2023 11:07 AM SERVICE DOG TRAINER Body Mass Index 28.17 12/17/2023 11:07 AM SERVICE DOG TRAINER Plan of Treatment Health Maintenance Due Date Last Done Comments Cervical Cancer Screening 2001 Chlamydia and Gonorrhea (GC/ CT) Screening 2001 Hepatitis C Screening 2001 Pneumococcal vaccine <65 (1 of 1 - PPSV23 or PCV20) 2007 11/23/2002, 05/21/2002, 03/24/2002, Additional history exists Covid-19 Vaccine (3 - 2023-2 5 season) 2024 06/17/2021, 05/27/2021 Influenza Vaccine (#1) 2024 , 08/16/2022, 08/09/2020, Additional history exists Depression Screening 10/21/2024 10/21/2023, 08/09/20 Regular Well Visit/Exam 18-64 10/21/2024 10/21/2023, 08/09/2022 DTaP/Tdap/Td Vaccine (8 - Td or Tdap) 07/03/2032 07/03/2022, 05/15/2012, 03/03/2007, Additional history exists Hepatitis B Screening Completed 11/23/2002 , 03/24/2002, 01/21/2002, Additional history exists Varicella Vaccines Discontinued 02/16/2003 HPV Vaccines Completed 08/10/2016, 07/25/2015 Meningococcal B Vaccine Completed 03/26/2019, 12/25 Insurance [facility]PPO Address: [address] [address] [place] [address] [facility]/PPO Address: [address] [address] [place] [address] Care Teams Tiler'S Assistant Relationship Specialty Start Date End Date Noemi Perez MD PCP - General Family Practice 08/06/22 Elisha Hathaway MD [address] [address] Referring Physician Gynecology 08/09/22
[2024-12-10 20:25] VITALS: BP 137/69; PULSE 86; RESP 16; TEMP 36.9; O2SAT 100
--- NOTE | 2024-12-11 01:32 | ED.LOWEXIN ---
HPI - Extremity Injury (Lower) General Chief Complaint: Extremity Injury, Lower Stated Complaint: R ankle injury Time Seen by Provider: 12/11/24 01:26 Source: patient Mode of arrival: ambulatory Limitations: no limitations History of Present Illness HPI Narrative: This is a 24-year-old female who presents to the ED for chief complaint of right ankle injury that occurred at home today. She stood up from the chair and accidentally twisted the ankle due to her leg being asleep. Denies any further pain or injury. S that she was having a lot of sharp pain earlier but the pain is improving with Tylenol from home. Related Data Home Medications ?Medication ?Instructions ?Recorded ?Confirmed ?Last Taken ?Type budesonide-formoterol HFA 160 See Rx Instructions .Route .COMPLEX 06/09/24 08/08/24 Unknown History mcg-4.5 mcg/actuation aerosol inhaler levonorgestrel-ethinyl estradiol 1 tablet PO DAILY 06/09/24 08/08/24 Unknown History 0.1 mg-20 mcg tablet loratadine 10 mg tablet (Claritin) 10 mg PO DAILY 06/09/24 08/08/24 Unknown History Allergies Allergy/AdvReac Type Severity Reaction Status Date / Time No Known Allergies Allergy Mild Verified 12/10/24 20:21 Review of Systems Review of Systems: All systems as dictated in HPI [facility] Past Medical History Medical History Patient denies medical problems Surgical History Surgical History No pertinent past surgical history Social History Social History Smoking status: Never smoker Exam Narrative: GENERAL: Well-appearing, well-nourished, and in no acute distress. MSK: RLE: Tenderness and mild swelling laterally along the ATFL distribution. Ankle joint is stable. Vascularly intact. Ambulatory without assistance LLE: Benign SKIN: Warm, dry, no rash. NEURO: Alert and oriented x4. No focal deficits. PSYCH: Normal mood and affect. Course Vital Signs Vital signs: Vital Signs Temperature 98.5 F 12/10/24 20:25 Pulse Rate 86 12/10/24 20:25 Respiratory Rate 16 12/10/24 20:25 Blood Pressure 137/69 12/10/24 20:25 Pulse Oximetry 100 12/10/24 20:25 Oxygen Delivery Room Air 12/10/24 20:25 Temperature 98.5 F 12/10/24 20:25 Pulse Rate 86 12/10/24 20:25 Respiratory Rate 16 12/10/24 20:25 Blood Pressure 137/69 12/10/24 20:25 Pulse Oximetry 100 12/10/24 20:25 Oxygen Delivery Room Air 12/10/24 20:25 MDM - Extremity Injury (Lower) MDM Narrative Medical decision making narrative: 24-year-old female presenting to the ED for ankle sprain today. Vitals are normal. Exam remarkable for the above. No fracture on right ankle x-rays. Patient was given Zion wrap, and she does not require crutches today. Pt will be discharged in stable condition. Return precautions given and supportive measures discussed. Pt is understanding and agreeable with plan for discharge and follow-up with PCP. Discharge Plan Discharge Clinical Impression: Ankle sprain and strain Patient Disposition: Home, Self-Care Condition: Stable Instructions: Antibiotic Form Additional Instructions: Exam and imaging today are reassuring overall. This is probably a grade 1 sprain of the ankle. Please use ibuprofen and Tylenol every 6 hours as needed for pain and swelling. You can rest, ice and elevate the ankle as well. Remain weight-bearing as tolerated. Patient Language: Tanzanian Prescriptions: No Action prednisone 50 mg tablet 50 mg PO DAILY Qty: 4 0RF Rx Instructions: First dose tomorrow morning famotidine [Pepcid] 40 mg tablet 40 mg PO DAILY Qty: 7 0RF levonorgestrel-ethinyl estrad 0.1-20 mg-mcg tablet 1 tablet PO DAILY loratadine [Claritin] 10 mg Tablet 10 mg PO DAILY budesonide-formoterol 160-4.5 mcg/actuation HFA aerosol inhaler See Rx Instructions .ROUTE .COMPLEX Rx Instructions: Rx Follow-up/Referrals: UNKNOWN,DOCTOR [Primary Care Provider] - Time of Disposition: 01:34
--- OUTSIDE RECORDS SUMMARY | 2024-12-11 01:45 | XMS_ITS | Clinical Summary ---
Author Organization [facility] Address [address] [place] [place] [address] Care Team Providers Care Jack Setter Name Role Phone Chelsea Logan MD Primary Care Provider [phone] Chelsea Logan MD Unavailable Source Comments [facility],non-owned Affiliates and Associated Physician Practices is amultiple site organization consisting of ambulatory clinics and hospital sitesin [place], [place], [place] and [place]. This disclosure is being madepursuant to the Care Everywhere program and may not contain all information available regarding this patient. Last updated 18.[facility] Allergies No known active allergies Medications [...] fluticasone propionate (FLONASE) 50 MCG/ACT nasal spray [place] 2 sprays into each nostril once daily [...] Active desmopressin (DDAVP) 0.01 % nasal spray [place] 1 spray into the nose at bedtime [...] age to complete this topic Care Teams Jack Setter Relationship Specialty Start Date End Date Chelsea Logan MD [address] [place] [address] [address] [place] [address] PCP - General 05/17/20 Chelsea Logan MD [facility] [address] [place] [address] Pediatrics 05/17/20
--- OUTSIDE RECORDS SUMMARY | 2024-12-11 01:45 | XMS_ITS | Referral Summary ---
Author Organization [facility] Address [address] [place] [address] Care Team Providers Care District Gauger Name Role Phone Chelsea Logan MD Primary Care Provider [phone] Chelsea Logan MD Unavailable Source Comments [facility],non-owned Affiliates and Associated Physician Practices is amultiple site organization consisting of ambulatory clinics and hospital sitesin [place], [place], [place] and [place]. This disclosure is being madepursuant to the Care Everywhere program and may not contain all information available regarding this patient. Last updated 18.[facility] Allergies No known active allergies [...] fluticasone propionate (FLONASE) 50 MCG/ACT nasal spray [place] 2 sprays into each nostril once daily [...] Active desmopressin (DDAVP) 0.01 % nasal spray [place] 1 spray into the nose at bedtime [...] of Treatment Not on file Care Teams District Gauger Relationship Specialty Start Date End Date Chelsea Logan MD [address] [facility] [address] [place] [address] PCP - General 05/17/20 Chelsea Logan MD [address] [facility] [address] [place] [address] Pediatrics 05/17/20
--- OUTSIDE RECORDS SUMMARY | 2024-12-11 01:45 | XMS_ITS | Encounter Summary ---
Author Organization [facility] Address [address] [place] [address] Care Team Providers Care Wire Frame Maker Name Role Phone Unavailable Primary Care Provider Unavailabl e Encounter Details Date Type Department Care Team (Late st Contact Info) Description 2001 Outpatient Historical [facility] Pediatrics - [facility] [address] [facility] [address] [address] Taya Puckett MD NO ADDRESS ON FILE Social History Tobacco Use Types Packs/Day Years Used Date Smoking Tobacco: Never Assessed Comments Unknown Sex and Gender Information Value Date Recorded Sex Assigned at Not on file Legal Sex Female 5:03 AM 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
--- OUTSIDE RECORDS SUMMARY | 2024-12-11 01:45 | XMS_ITS | Patient Health Summary ---
Author Organization [facility] Address [address] [facility] [place] [address] Care Team Providers Care Mold Making Supervisor Name Role Phone Chelsea Logan MD Primary Care Provider [phone] Chelsea Logan MD Unavailable Note from [facility],non-owned Affiliates and Associated Physician Practices is amultiple site organization consisting of ambulatory clinics and hospital sitesin [place], [place], [place] and [place]. This disclosure is being madepursuant to the Care Everywhere program and may not contain all information available regarding this patient. Last updated 18.[facility] Allergies No known active allergies Medications [...] propionate (FLONASE) 50 MCG/ACT nasal spray(Started 01/30/2018) [place] 2 sprays into each nostril once daily [...] desmopressin (DDAVP) 0.01 % nasal spray(Started 05/26/2020) [place] 1 spray into the nose at bedtime [...] SODIUM BLOOD (07/21/2020 10:42 AM CDT) Pathologist [facility] Sodium 140 135 - 146 mmol/L [facility] Comment: Test Performed at: [facility] [address] [place] [address] REYNA TAI DO,MPH Blood BLOOD SPECIMEN / Unknown 07/21/2020 10:42 AM CDT 07/21/2020 10:43 AM CDT Patricia Shah MD LAB - CHEMISTRY JORGE [place] Performing Organization Address City/State/[facility] Co de Phone Number [facility] [address] [place] [address] * (ABNORMAL) URINALYSIS W/MICROSCOPIC NO CULTURE (01/30/2018 2:32 PM CDT) Color UA Yellow Straw, Yellow 01/30/2018 3:24 PM CDT [facility] Clarity UA Slt Cloudy(A) Clear 01/30/2018 3:24 PM CDT [facility] Glucose UA Negative Negative 01/30/2018 3:24 PM CDT [facility] Bilirubin UA Negative Negative 01/30/2018 3:24 PM CDT [facility] Ketone UA Negative Negative 01/30/2018 3:24 PM CDT [facility] Specific Almo UA 1.015 1.005 - 1.030 01/30/2018 3:24 PM CDT [facility] Blood UA Negative Negative 01/30/2018 3:24 PM CDT [facility] pH UA 5.0 5.0 - 8.0 pH 01/30/2018 3:24 PM CDT [facility] Protein UA Negative Negative 01/30/2018 3:24 PM CDT [facility] Urobilinogen UA Negative Negative mg/dL 01/30/2018 3:24 PM CDT [facility] Nitrite UA Negative Negative 01/30/2018 3:24 PM CDT [facility] Leukocyte UA Negative Negative 01/30/2018 3:24 PM CDT [facility] RBC UA 0-5 0-5, None Seen # /hpf 01/30/2018 3:24 PM CDT [facility] WBC UA 0-5 0-5, None Seen # /hpf 01/30/2018 3:24 PM CDT [facility] Bacteria UA Trace(A) None Seen 01/30/2018 3:24 PM CDT [facility] Squamous Epithelial Cells 6-10(A) None Seen, 0-2, 3-5 /hpf 01/30/2018 3:24 PM CDT [facility] Mucus UA 1+ /LPF 01/30/2018 3:24 PM CDT [facility] Urine URINE SPECIMEN OBTAINED BY CLEAN CATCH PROCEDURE / Unknown Collection / Unknown 01/30/2018 2:32 PM CDT 01/30/2018 2:50 PM CDT Narrative [facility] - 01/30/2018 3:24 PM CDT Marlena Morris APRN-[facility] - URINALYS IS ORDERABLES [facility] [address] [place] [id number] * CULTURE URINE (01/30/2018 2:32 PM CDT) Culture Urine 10,000-50,000 CFU/mL urogenital susy SWATHI 01/31/2018 3:52 PM CDT [facility] Urine URINE SPECIMEN OBTAINED BY CLEAN CATCH PROCEDURE / Unknown Collection / Unknown 01/30/2018 2:32 PM CDT 01/30/2018 2:50 PM CDT Marlena Morris APRN-[facility] - MICROBIO LOGY ORDERABLES [facility] [address] [place] [address], [facility] [phone] * CALCIUM/CREAT RATIO URINE RANDOM PANEL (01/30/2018 2:32 PM CDT) Calcium Urine 13.89 mg/dL 01/30/2018 4:05 PM CDT [facility] Creatinine Urine 80.60 mg/dL 01/30/2018 4:05 PM CDT [facility] Calcium/Creatin ine Ratio Urine 0.17 01/30/2018 4:05 PM CDT [facility] Urine URINE SPECIMEN OBTAINED BY CLEAN CATCH PROCEDURE / Unknown Collection / Unknown 01/30/2018 2:32 PM CDT 01/30/2018 2:50 PM CDT Narrative [facility] - 01/30/2018 4:05 PM CDT Normal <0.16 Borderline 0.16-0.20 Abnormal >0.20 Marlena Morris APRN-[facility] - URINE CH EMISTRY ORDERABLES [facility] [address] [place] [address] Care Teams Mold Making Supervisor Relationship Specialty Start Date End Date Chelsea Logan MD [address] [place] [address] PCP - General 05/17/20 Chelsea Logan MD [address] [place] [address] Pediatrics 05/17/20
--- OUTSIDE RECORDS SUMMARY | 2024-12-11 01:46 | XMS_ITS | Clinical Summary ---
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
--- OUTSIDE RECORDS SUMMARY | 2024-12-11 01:46 | XMS_ITS | Encounter Summary ---
[facility] Organization [facility] Address [address] Attn: [place] [address] Care Team Providers Care Credit Authorizer Name Role Phone Unavailable Primary Care Provider Unavailabl e Encounter Details Date Type Department Care Team (Late st Contact Info) Description 2001 Inpatient Historical Taya Puckett MD NO ADDRESS ON FILE Danae Shore MD [address] [place] [id number] [facility]-NO C/DELIVERY (Primary Dx) Social History Tobacco Use Types Packs/Day Years Used Date Smoking Tobacco: Never Assessed Comments Unknown Sex and Gender Information Value Date Recorded Sex Assigned at Not on file Legal Sex Female 5:03 AM CLOTH HAULER Gender Identity Not on file Sexual Orientation Not on file documented as of this encounter Plan of Treatment Not on file documented as of this encounter Visit Diagnoses Diagnosis Single liveborn, born in hospital, delivered without mention of delivery- Primary documented in this encounter
--- OUTSIDE RECORDS SUMMARY | 2024-12-11 01:46 | XMS_ITS | Clinical Summary ---
Author Organization [facility] Address [address] [address] Phone Care Team Providers Care Casing Flusher Name Role Phone Noemi Perez MD Primary Care Provider Elisha Hathaway MD Unavailable Allergies Active Allergy Reactions Criticality Noted Date [...] Comments Blood Pressure 106/58 12/17/2023 11:07 AM ASPNET DEVELOPER Pulse 109 12/17/2023 11:07 AM ASPNET DEVELOPER Temperature 36.8 C (98.3 F) 12/17/2023 11:07 AM ASPNET DEVELOPER Respiratory Rate 22 12/17/2023 11:07 AM ASPNET DEVELOPER Oxygen Saturation 97% 12/17/2023 11:07 AM ASPNET DEVELOPER Inhaled Oxygen Concentration - - Weight 72.1 kg (159 lb) 12/17/2023 11:07 AM ASPNET DEVELOPER Height 160 cm (5' 3 ) 12/17/2023 11:07 AM ASPNET DEVELOPER Body Mass Index 28.17 12/17/2023 11:07 AM ASPNET DEVELOPER Plan of Treatment Health Maintenance Due Date [...] Meningococcal B Vaccine Completed 03/26/2019, 12/25 Insurance [facility] Care Teams Casing Flusher Relationship Specialty Start Date End Date Noemi Perez MD PCP - General Family Practice 08/06/22 Elisha Hathaway MD [address] [address] Referring Physician Gynecology 08/09/22
--- OUTSIDE RECORDS SUMMARY | 2024-12-11 01:46 | XMS_ITS | Referral Summary ---
Author Organization [facility] Address [address] [address] Phone Care Team Providers Care Manager Biostatistics Name Role Phone Noemi Perez MD Primary Care Provider Elisha Hathaway MD Unavailable [phone] Allergies Active Allergy Reactions Criticality Noted Date [...] Comments Blood Pressure 106/58 12/17/2023 11:07 AM BRICK WHEELER Pulse 109 12/17/2023 11:07 AM BRICK WHEELER Temperature 36.8 C (98.3 F) 12/17/2023 11:07 AM BRICK WHEELER Respiratory Rate 22 12/17/2023 11:07 AM BRICK WHEELER Oxygen Saturation 97% 12/17/2023 11:07 AM BRICK WHEELER Inhaled Oxygen Concentration - - Weight 72.1 kg (159 lb) 12/17/2023 11:07 AM BRICK WHEELER Height 160 cm (5' 3 ) 12/17/2023 11:07 AM BRICK WHEELER Body Mass Index 28.17 12/17/2023 11:07 AM BRICK WHEELER Plan of Treatment Not on file Insurance [facility] PL[facility] Care Teams Manager Biostatistics Relationship Specialty Start Date End Date Noemi Perez MD PCP - General Family Practice 08/06/22 Elisha Hathaway MD [address] [address] Referring Physician Gynecology 08/09/22
--- OUTSIDE RECORDS SUMMARY | 2024-12-11 01:46 | XMS_ITS | Continuity of Care Document ---
Author Organization [facility] Address [address] [place] [address] Phone Care Team Providers Care Adult Neurologist Name Role Phone Man Munson MD Unavailable [...] Procedure Date HEALTH RISK ASSESSMENT, PATIENT-FOCUSED OFFICE QLCGH-DQD-[id number] BODY MASS INDEX DOCD SYST BP LT 130 MM HG DIAST BP 80-89 MM HG MOUTHPIECE SPIROMETRY BEFORE & AFTER BRONCHODIALATO R HEALTH RISK ASSESSMENT, PATIENT-FOCUSED OFFICE [id number]-LNM-[id number] BODY MASS INDEX DOCD SYST BP LT 130 MM HG DIAST BP < 80 MM HG MOUTHPIECE SPIROMETRY BEFORE & AFTER BRONCHODIALATO R HEALTH RISK ASSESSMENT, PATIENT-FOCUSED OFFICE APROR-ROY-TOZWUPVZ BODY MASS INDEX DOCD SYST BP LT 130 MM HG DIAST BP 80-89 MM HG MOUTHPIECE RESPIRATORY FLOW VOLUME LOOP HEALTH RISK ASSESSMENT, PATIENT-FOCUSED OFFICE SJJQE-VYC-[id number] MOUTHPIECE RESPIRATORY FLOW VOLUME LOOP HEALTH RISK ASSESSMENT, PATIENT-FOCUSED OFFICE NQOIT-VSI-PYSHUMZO BODY MASS INDEX DOCD SYST BP LT 130 MM HG DIAST BP 80-89 MM HG MOUTHPIECE RESPIRATORY FLOW VOLUME LOOP HEALTH RISK ASSESSMENT, PATIENT-FOCUSED OFFICE OAGIB-NEF-PBMLKXAJ BODY MASS INDEX DOCD SYST BP LT 130 MM HG DIAST BP < 80 MM HG MOUTHPIECE RESPIRATORY FLOW VOLUME LOOP ALLERGY SKIN TESTS ALLERGY SKIN TESTS ID OFFICE TESPJ-QZD-AWFUVOWW HEALTH RISK ASSESSMENT, PATIENT-FOCUSED OFFICE COGET-JIZ-JQIJNSUB BODY MASS INDEX DOCD SYST BP GE 130 - 139MM HG DIAST BP 80-89 MM HG PULMONARY SPIROMETRY, FUNCTION MOUTHPIECE HEALTH RISK ASSESSMENT, PATIENT-FOCUSED OFFICE [id number]-[id number] Additional supplies, materials, & Clinic al Staff Time During A PHE BODY MASS INDEX DOCD SYST BP LT 130 MM HG DIAST BP < 80 MM HG RESPIRATORY FLOW VOLUME LOOP MOUTHPIECE HEALTH RISK ASSESSMENT, PATIENT-FOCUSED OFFICE MAEQB-JEI-CTPSRILP BODY MASS INDEX DOCD SYST BP LT 130 MM HG DIAST BP < 80 MM HG MOUTHPIECE RESPIRATORY FLOW VOLUME LOOP HEALTH RISK ASSESSMENT, PATIENT-FOCUSED OFFICE OLHEF-KGP-RAPLGTQS BODY MASS INDEX DOCD PULMONARY SPIROMETRY, FUNCTION 19 MOUTHPIECE HEALTH RISK ASSESSMENT, PATIENT-FOCUSED OFFICE SZPHW-BLQ-GHYOWTXM BODY MASS INDEX DOCD PULMONARY SPIROMETRY, FUNCTION 19 MOUTHPIECE Advance Directives Directive Yes / No Effective Date File Name No Information Encounters Encounter Description Practice Location Reason(s) For Visit Diagnoses Date Provider Providers Copied on Encounter [facility], [address], [place], [place], [address] , tel: [phone] [facility] [place] No Information 4 Munsonkareem Conway. [address] , [facility] [address], [place], [place], [address] , . tel: [phone] [facility], [address], [place], [place], [address] , tel: [phone] [facility] [place] No Information 4 Munsonkareem Conway. [address] , [facility] [address], [place], [place], [address] , [place]. tel: [phone] OFFICE YHDWT-XZS-TQ TAILED [facility], [address], [place], [place], [address] , tel: [phone] [facility] Asthma & Allergies (chief complaint) Moderate persistent asthma, uncomplicatedAllerg ic rhinitis due to pollenAllergic rhinitis due to animal hair or danderAllergy to mold 4 Vicki Jiménez . [address] [place], [place], [id number] , . tel: [phone] Referring Provider: [address], [place], [address]. tel:[phone] OFFICE SUIHP-WDE-KR PANDED [facility], [address] [place] [address], [id number] , tel: [phone] [facility] [place] Asthma & Allergies (chief complaint) Moderate persistent asthma, uncomplicatedAllerg ic rhinitis due to pollenAllergic rhinitis due to animal hair or danderAllergy to mold Dec-0 - 3 Munsonkareem Conawy. [address] [place] [address], [id number] , . tel: [phone] Referring Provider: [address], [place], [address]. tel:[phone] OFFICE LKONM-IVG-HX TAILED [facility], [address], [place], [place], [address] , tel: [phone] [facility] asthma (chief complaint) allergy f/u (chief complaint) asthma (chief complaint) Moderate persistent asthma, uncomplicatedAllerg ic rhinitis due to pollenAllergic rhinitis due to animal hair or danderAllergy to mold Dimitrios-0 3 Gonzalez Irizarry. [address], [id number] , . tel: [phone] Referring Provider: [address], [place], [address]. tel:[phone] OFFICE ICUJZ-MQY-LJ TAILED [facility], [address], [place], [place], [address] , tel: [phone] [facility] [place] asthma (chief complaint) allergy f/u (chief complaint) Moderate persistent asthma, uncomplicatedAllerg ic rhinitis due to pollenAllergic rhinitis due to animal hair or danderAllergy to mold Dec-0 2 Gonzalez Irizarry. [address], [id number] , . tel:[phone] Referring Provider: Noemi Perez , [address] [address], [place], [address]. tel:[phone] OFFICE UYYRE-RAU-WS [facility], [address], [place], [place], [address] , tel:[phone] [facility] [place] asthma (chief complaint) asthma-con trol (chief complaint) allergy f/u (chief complaint) Moderate persistent asthma, uncomplicatedAllerg ic rhinitis due to pollenAllergic rhinitis due to animal hair or danderAllergy to mold 2 Gonzalez Irizarry. [address] [place] [address], [id number] , . tel:[phone] Referring Provider: Francisco Javier العلي, [address] [place] [address] Rd [address], [place], [address] . tel:[phone] OFFICE DOQQE-YGI-IQ TAILED [facility], [address] [facility], [place], [place], [address] , [place] [phone] [facility] [place] asthma (chief complaint) Asthma-con trol (chief complaint) allergies (chief complaint) Moderate persistent asthma, uncomplicatedAllerg ic rhinitis due to pollenAllergic rhinitis due to animal hair or dander 1 Gonzalez Irizarry. [address] [place] [address], [id number] , [place]. tel:[phone] Referring Provider: Francisco Javier العلي, [address] [place] [address] Rd [address], [place], [address] . tel:[phone] OFFICE BCQOY-EEN-CD PANDED [facility], [address], [place], [place], [address] , [place] tel:[phone] [facility] allergies (chief complaint) asthma (not seen for this today) (chief complaint) Allergic rhinitis due to pollenAllergic rhinitis due to animal hair or danderAllergy to mold 1 Gonzalez Irizarry. [address] [place] [address], [id number] , . tel:[phone] Referring Provider: Francisco Javier العلي, [address] [address], [place], [address] . tel:[phone] OFFICE IGXJN-NSG-OI [facility], [address], [place], [place], [address] , tel: [phone] [facility] asthma (chief complaint) Asthma-con trol (chief complaint) allergies (chief complaint) Moderate persistent asthma, uncomplicatedAllerg ic rhinitis due to pollenAllergic rhinitis due to animal hair or dander Dimitrios-2 [address] [place] [address], [id number] , . tel:[phone] Referring Provider: Francisco Javier العلي, [address] [address], [place], [address] . tel:[phone] [facility], [address], [place], [place], [address] , tel: [phone] [facility] [place] asthma (chief complaint) Asthma-con trol (chief complaint) allergies (chief complaint) Moderate persistent asthma, uncomplicatedAllerg ic rhinitis due to pollenAllergic rhinitis due to animal hair or dander Dec-0 0 Gonzalez Irizarry. [address], [id number] , . tel:[phone] Referring Provider: Francisco Javier العلي, [address] [address], [place], [address] . tel:[phone] OFFICE AKNOV-QYY-XX [facility], [address], [place], [place], [address] , tel:[phone] [facility] asthma (chief complaint) Asthma-con trol (chief complaint) allergies (chief complaint) Moderate persistent asthma, uncomplicatedAllerg ic rhinitis due to pollenAllergic rhinitis due to animal hair or dander Dimitrios- 0 Gonzalez Irizarry. [address], [id number] , [place]. tel: [phone] Referring Provider: Chelsea Logan, [address], [place], [address]. tel:[phone] OFFICE PTWUQ-LZW-TI [facility], [address], [place], [place], [address] , [place] tel: [phone] [facility] asthma (chief complaint) Asthma-con trol (chief complaint) allergies (chief complaint) Moderate persistent asthma, uncomplicatedAllerg ic rhinitis due to pollenAllergic rhinitis due to animal hair or dander 9 Gonzalez Irizarry. [address], [id number] , [place]. tel: [phone] Referring Provider: Francisco Javier العلي, [address], [place], [address] . tel:[phone] OFFICE XTTKM-KDR-DV [facility], [address], [place], [place], [address] , [place] tel: [phone] [facility] (chief complaint) Asthma-con trol (chief complaint) allergies (chief complaint) Moderate persistent asthma, uncomplicatedAllerg ic rhinitis due to pollenAllergic rhinitis due to animal hair or dander 9 Gonzalez Irizarry. [address] [facility], [address], [id number] , [place]. tel: [phone] Referring Provider: [address], [place], [address] . tel:[phone] [facility], [address], [place], [place], [address] , [place] tel: [phone] [facility] Moderate persistent asthma, uncomplicatedAllerg ic rhinitis due to pollenAllergic rhinitis due to animal hair or dander 8 Gonzalez Irizarry. [address] [facility], [address], [id number] , . tel: [phone] Referring Provider: [address], [place], [address] . tel:[phone] [facility], [address], [place], [place], [address] , tel: [phone] [facility] Moderate persistent asthma, uncomplicatedAllerg ic rhinitis due to pollenAllergic rhinitis due to animal hair or dander 8 Gonzalez Irizarry. [address] [facility], [address], [id number] , . tel: [phone] Referring Provider: Francisco Javier العلي, [address] [place] [address] [address], [place], [address] . tel:[phone] [facility], [address], [place], [place], [address] , tel: [phone] [facility] Allergic rhinitis due to pollenAllergic rhinitis due to animal hair or danderMild persistent asthma, uncomplicated 7 Shine Inessa . [address] [place] [address], [address], [id number] , . tel: [phone] Referring Provider: Juan C Roth, [address] [place] [address], [address] . tel:[phone] [facility], [address], [place], [place], [address] , tel: [phone] [facility] Mild persistent asthma, uncomplicatedAllerg ic rhinitis due to pollenAllergic rhinitis due to animal hair or dander 7 Silvestre Wylie . [address] [place] [address], [address], [id number] , . tel: [phone] Referring Provider: Juan C Roth, [address] [place] [address], [address] . tel:[phone] [facility], [address] [place] [address], [id number] , tel: [phone] [facility] Mild persistent asthma, uncomplicatedAllerg ic rhinitis due to pollenAllergic rhinitis due to animal hair or dander 6 Gonzalez Irizarry. [address] [place] [address], [address], [id number] , . tel: [phone] Referring Provider: Chelsea Logan [address] [facility] [address], [place], [address]. tel:[phone] [facility], [address], [place], [place], [address] , tel: [phone] [facility] Mild persistent asthma, uncomplicatedAllerg ic rhinitis due to pollenAllergic rhinitis due to animal hair or dander Dec-3 Gonzalez Irizarry. [address] [facility], [address], [id number] , . tel: [phone] Referring Provider: Chelsea Logan [address] [facility] [address], [place], [address]. tel:[phone] [facility], [address], [place], [place], [address] , tel: [phone] [facility] INTRINSIC ASTHMA, UNSPECIFIEDAllergic rhinitis due to other allergen Jan-0 Gonzalez Irizarry. [address], [id number] , . tel: [phone] Referring Provider: Samantha Nixon [address] [facility] [address], [place], [address]. tel:[phone] [facility], [address], [place], [place], [address] , tel: [phone] [facility] INTRINSIC ASTHMA, UNSPECIFIEDAllergic rhinitis due to other allergenAcute atopic conjunctivitis Dimitrios-0 Gonzalez Irizarry. [address] [facility], [address], [id number] , . tel: [phone] Referring Provider: Samantha Nixon, [address] [facility] [address], [place], [address]. tel:[phone] [facility], [address], [place], [place], [address] , tel: [phone] [facility] INTRINSIC ASTHMA, UNSPECIFIEDAllergic rhinitis due to other allergenAcute atopic conjunctivitis 3 Gonzalez Irizarry. [address] [facility], [address] [address], [place], [place], [address] , [place]. tel: [phone] Referring Provider: [address], [place], [address]. tel:[phone] Family History Family Member Type Diagnosis Age At Onset Brother Problem (finding) Allergies, environmenta l Payers Payer name Insurance type Covered libertarian ID Leila giron(s) [facility] [employer] ACC[employer] CI [id number] Social History Type Description Quantity Date Captured [...] COVID infections. Senior this fall (2022) at [employer] this spring. 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 Comments: Allerg ens: TREES, GRASS, WEED/RAGWEED, [...] for exercise. 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 Had flu shot this fallVaccinated for COVID x 2 No COVID infections. 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 allergy f/u Comments: Last o ffice visit 10/17/21 and before this on 05/24/21 (testing) Remains on Symbicort 160/4.5, 2 puffs twice daily with good control. Proair seldom now. Cristhian this fall moving on to [employer] instead of [facility] (and still exercising but will not be playing soccer)Had flu shot last fall and has been vaccinated for COVID x 2 ([employer]) but no booster. No COVID infection. 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 Comments: Allerg ens: TREES, GRASS, WEED/RAGWEED, MOLD [...] flu, covid though)Lesly. in fall again at [facility] on soccer scholarship and usually in the dorm (no pets). Then will be on to [employer] in instead (?still some soccer)Had flu shot again this fall and has been vaccinated for COVID x 2 ([employer]) Went to [email or web address] for soccer this past season. allergies (comments) [...] recently out of seasonShe denies nocturnal or continuum of care manager symptomsNo problems with URIs usually.Lesly. at [facility] on soccer scholarship (Jun - Jul) and [...] and then referred to Speech Therapy in [place] (01/05/21). Got better on own and with treatment of her allergy symptoms. allergies (comments) Allergens: TREES, CAT, and DOG only (03/11/13) Indoor dogs x 2 (not in bedroom). Walks the dogs. Not around dad's cat much. 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 Also works at [employer].Uses Loratadine 10 mg once daily year round [...] recently out of seasonShe denies nocturnal or continuum of care manager symptomsNo problems with URIs usually.Fresh at [employer] [facility] [employer] on soccer scholarship, but now virtual so [...] results (none needed recently)She denies nocturnal or continuum of care manager symptomsNo problems with URIs usually.Went to [facility] in the fall of 2019 (still played [...] again in 12/24) She denies nocturnal or continuum of care manager symptomsNo problems with URIs usually.Going to [facility] in the fall of 2019 (will still [...] and for cough. She denies nocturnal or continuum of care manager symptomsNo problems with URIs usually.Senior in next fall then to [facility] following year.Had flu shot last fall. asthma [...] to Allergy to mold - [facility] measures for your rhinitis.- [...] Vaccine. Related to Moderate persistent asthma, uncomplicated We reviewed appropri ate environmental control measures for your rhinitis.Please continue with your present nasal medications or treatment that includes Loratadine 10 mg once daily adding Fluticasone 2 puffs each nostril once daily as needed. Call for increasing symptoms or difficulty with medications. Refills provided or call when more are needed. Related to Allergic rhinitis due to pollen Continue to avoid an imal dander exposures. [...] . Related to Aller gy to mold Minimize dander exposures when p ossible Related [...] rhinitis due to pollen Continue to avoid in door pet danders [...] days (you can monitor mold counts at http://www.aaaai.org/global/fqk-lrifpf-e ounts.aspx or http://pollen.aaaai.org/)At the end of a [...] days (you can monitor pollen counts at http://www.aaaai.org/global/fdg-olklzw-y ounts.aspx or http://pollen.aaaai.org/)Pollen counts are typically lower [...]
--- OUTSIDE RECORDS SUMMARY | 2024-12-11 01:46 | XMS_ITS | Clinical Summary ---
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
--- OUTSIDE RECORDS SUMMARY | 2024-12-11 01:46 | XMS_ITS | Encounter Summary ---
Author Organization [facility] Address [address] [place] [address] Care Team Providers Care Firer Bisque Kiln Name Role Phone Unavailable Primary Care Provider Unavailabl e Encounter Details Date Type Department Care Team (Late st Contact Info) Description 2001 Outpatient Historical [facility] Hearing Services 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
== END 2024-12-11 02:07 | disposition home or self-care (01) ==
LOC: ANHED 12-11 01:43
PROVIDERS: Emergency Provider Physician Assistant
DX: S93.401A Sprain of unspecified ligament of right ankle, initial encounter (principal); S96.911A Strain of unspecified muscle and tendon at ankle and foot level, right foot, initial encounter; X50.9XXA Other and unspecified overexertion or strenuous movements or postures, initial encounter
CPT/HCPCS: 73610; 99283

== ENCOUNTER 2025-09-24 09:55 | Emergency (ER) | payer OTHER, SELFPAY ==
--- OUTSIDE RECORDS SUMMARY | 2025-05-04 03:55 | XMS_ITS | Continuity of Care Document ---
Author Organization [employer] [facility] Address [address] [place] [address] Phone Care Team Providers Care Joist Setter Name Role Phone Man Munson MD Unavailable Unavailable Allergies, Adverse Reactions, Alerts Substance Reaction Status Criticality No Known Allergies Active No Inform ation Medications Medication Instructions Dosage Effective Dates (start - stop) Status Comments albuterol sulfate HFA 90 mcg/actuation aerosol inhaler inhale 2 puff by inhalation route every 4 - 6 hours as needed 180 MCG - Active Replacing ProAir Symbicort 160 mcg-4.5 mcg/actuation HFA aerosol inhaler inhale 2 puff by inhalation route 2 times every day in the morning and evening 2.00 puff - Active loratadine 10 mg tablet - Active Lutera (28) 0.1 mg-20 mcg tablet take 1 tablet by oral route every day 1.00 tablet - Active ProAir RespiClick 90 mcg/actuation breath activated inhale 2 puff by inhalation route every 4 - 6 hours as needed 180 MCG - No Longer Active Procedures Procedure Date HEALTH RISK ASSESSMENT, PATIENT-FOCUSED OFFICE [id number] BODY MASS INDEX DOCD SPIROMETRY BEFORE & AFTER BRONCHODIALATO R HEALTH RISK ASSESSMENT, PATIENT-FOCUSED OFFICE [id number] BODY MASS INDEX DOCD SYST BP LT 130 MM HG DIAST BP 80-89 MM HG MOUTHPIECE SPIROMETRY BEFORE & AFTER BRONCHODIALATO R HEALTH RISK ASSESSMENT, PATIENT-FOCUSED OFFICE [id number] [facility] 130 MM HG DIAST BP < 80 MM HG MOUTHPIECE SPIROMETRY BEFORE & AFTER BRONCHODIALATO R HEALTH RISK ASSESSMENT, PATIENT-FOCUSED OFFICE [id number] BODY MASS [facility]DEX [facility] BP LT 130 MM HG DIAST BP 80-89 MM HG MOUTHPIECE RESPIRATORY FLOW VOLUME LOOP HEALTH RISK ASSESSMENT, PATIENT-FOCUSED OFFICE [id number] MOUTHPIECE RESPIRATORY FLOW VOLUME LOOP HEALTH RISK ASSESSMENT, PATIENT-FOCUSED OFFICE [id number] [facility]ODY MASS [facility]DEX [facility] BP LT 130 MM HG DIAST BP 80-89 MM HG MOUTHPIECE RESPIRATORY FLOW VOLUME LOOP HEALTH RISK ASSESSMENT, PATIENT-FOCUSED OFFICE [id number] BODY MASS INDEX [facility] BP LT 130 MM HG DIAST BP < 80 MM HG MOUTHPIECE RESPIRATORY FLOW VOLUME LOOP ALLERGY SKIN TESTS ALLERGY SKIN TESTS ID OFFICE [id number] HEALTH RISK ASSESSMENT, PATIENT-FOCUSED OFFICE [id number] BODY MASS INDEX DOCD SYST BP GE 130 - 139MM HG DIAST BP 80-89 MM HG PULMONARY SPIROMETRY, FUNCTION 21 MOUTHPIECE HEALTH RISK ASSESSMENT, PATIENT-FOCUSED OFFICE [id number] Additional supplies, materials, & Clinic al Staff Time During A PHE BODY MASS INDEX DOCD SYST BP LT 130 MM HG DIAST BP < 80 MM HG RESPIRATORY FLOW VOLUME LOOP MOUTHPIECE HEALTH RISK ASSESSMENT, PATIENT-FOCUSED OFFICE [id number] BODY MASS INDEX DOCD SYST BP LT 130 MM HG DIAST BP < 80 MM HG MOUTHPIECE RESPIRATORY FLOW VOLUME LOOP HEALTH RISK ASSESSMENT, PATIENT-FOCUSED OFFICE [id number] BODY MASS INDEX DOCD PULMONARY SPIROMETRY, FUNCTION 19 MOUTHPIECE HEALTH RISK ASSESSMENT, PATIENT-FOCUSED OFFICE [id number] BODY MASS INDEX DOCD PULMONARY SPIROMETRY, FUNCTION 19 MOUTHPIECE Advance Directives Directive Yes / No Effective Date File Name No Information Encounters Encounter Description Practice Location Reason(s) For Visit Diagnoses Date Provider Providers Copied on Encounter [facility], [address], [place], [place], [id number] , [place] tel: [phone] [facility] [place] No Information 5 Arpit Conway. [address], [address], [place], [place], [address] , [place]. tel: [phone] OFFICE JMEHL-SQU-RN TAILED [facility], [address], [place], [place], [address] , [place] tel: [phone] [facility] [place] Asthma & Allergies (chief complaint) Moderate persistent asthma, uncomplicatedAllerg ic rhinitis due to pollenAllergic rhinitis due to animal hair or danderAllergy to mold Apr- 5 Munson Elyra. [address], [facility] [address], [place], [place], [address] , . tel: [phone] Referring Provider: Jr Jefferson, [address] [facility], [place], [address]. tel:[phone] OFFICE IPCWH-IGO-IX TAILED [facility], [address], [place], [place], [address] , tel: [phone] [facility] Ast[facility] [place] Asthma & Allergies (chief complaint) Moderate persistent asthma, uncomplicatedAllerg ic rhinitis due to pollenAllergic rhinitis due to animal hair or danderAllergy to mold 4 Vicki Jiménez . [address] [place] [address], [id number] , . tel: [phone] Referring Provider: Sania Alicea Dr [facility], [place], [address]. tel:[phone] OFFICE LJLTX-FAC-MV PANDED [facility], [address], [place], [place], [address] , [place] tel: [phone] [facility] Asthma Allergy [place] Asthma & Allergies (chief complaint) Moderate persistent asthma, uncomplicatedAllerg ic rhinitis due to pollenAllergic rhinitis due to animal hair or danderAllergy to mold Oct- 3 Munson Elyra. [address], [facility] [address], [place], [place], [address] , . tel: [phone] Referring Provider: Sania [address], [place], [address]. tel:[phone] OFFICE KGSQG-OKX-GL TAILED [facility], [address], [place], [place], [address] , tel: [phone] [facility] Asthma Allergy [place] asthma (chief complaint) allergy f/u (chief complaint) asthma (chief complaint) Moderate persistent asthma, uncomplicatedAllerg ic rhinitis due to pollenAllergic rhinitis due to animal hair or danderAllergy to mold Apr-0 3 Gonzalez Irizarry. [address], [id number] , . tel: [phone] Referring Provider: Sania [address], [place], [address]. tel:[phone] OFFICE SHOZG-ZBR-GL TAILED [facility], [address] [place] [address], [id number] , tel: [phone] [facility] Asthma Allergy [place] asthma (chief complaint) allergy f/u (chief complaint) Moderate persistent asthma, uncomplicatedAllerg ic rhinitis due to pollenAllergic rhinitis due to animal hair or danderAllergy to mold Oct-0 2 Gonzalez Irizarry. [address] [place] [address], [id number] , . tel:[phone] Referring Provider: Sania [address], [place], [address]. tel:[phone] OFFICE WCCNY-URF-DB TAILED [facility], [address] [facility], [place], [place], [address] , [place] tel: [phone] [facility] Asthma Allergy [place] asthma (chief complaint) asthma-con trol (chief complaint) allergy f/u (chief complaint) Moderate persistent asthma, uncomplicatedAllerg ic rhinitis due to pollenAllergic rhinitis due to animal hair or danderAllergy to mold Dimitrios-0 2 Gonzalez Irizarry. [address] [place] [address], [id number] , . tel:[phone] Referring Provider: Francisco Javier العلي, [address] [place] [address] [address], [place], [address] . tel:[phone] OFFICE CNCYI-TGX-TO TAILED [facility], [address], [place], [address] , [place] tel:[phone] [facility] Asthma Allergy [place] asthma (chief complaint) Asthma-con trol (chief complaint) allergies (chief complaint) Moderate persistent asthma, uncomplicatedAllerg ic rhinitis due to pollenAllergic rhinitis due to animal hair or dander Dec- 1 Gonzalez Irizarry. [address] [place] [address] [address], [place], [place], [id number] , . tel: [phone] Referring Provider: Francisco Javier العلي, [address] [place] [address] Rd [address], [place], [address] . tel:[phone] OFFICE EGEYF-ZHS-JX PANDED [facility], [address], [place], [place], [address] , tel: [phone] [facility] Asthma Allergy [place] allergies (chief complaint) asthma (not seen for this today) (chief complaint) Allergic rhinitis due to pollenAllergic rhinitis due to animal hair or danderAllergy to mold 1 Gonzalez Irizarry. [address] [place] [address], [id number] , . tel:[phone] Referring Provider: Francisco Javier العلي, [address] [place] [address] [address], [place], [address] . tel:[phone] OFFICE GRUKL-WWR-IT TAILED [facility], [address], [place], [place], [address] , [place] tel: [phone] [facility] Asthma Allergy [place] asthma (chief complaint) Asthma-con trol (chief complaint) allergies (chief complaint) Moderate persistent asthma, uncomplicatedAllerg ic rhinitis due to pollenAllergic rhinitis due to animal hair or dander 1 Gonzalez Irizarry. [address] [place] [address], [id number] , . tel:[phone] Referring Provider: Francisco Javier العلي, [address] [place] [address] [address], [place], [address] . tel:[phone] OFFICE HCMGX-AMQ-ZL TAILED [facility], [address], [place], [place], [address] , [place] tel: [phone] [facility] Asthma Allergy [place] asthma (chief complaint) Asthma-con trol (chief complaint) allergies (chief complaint) Moderate persistent asthma, uncomplicatedAllerg ic rhinitis due to pollenAllergic rhinitis due to animal hair or dander Oct-0 0 Gonzalez Irizarry. [address] [facility], [address], [id number] , . tel: [phone] Referring Provider: Francisco Javier العلي, [address], [place], [address] . tel:[phone] OFFICE GKWKQ-EIP-DL TAILED [facility], [address], [place], [address] , [place] tel: [phone] [facility] Asthma Allergy [place] asthma (chief complaint) Asthma-con trol (chief complaint) allergies (chief complaint) Moderate persistent asthma, uncomplicatedAllerg ic rhinitis due to pollenAllergic rhinitis due to animal hair or dander Apr- 0 Gonzalez Irizarry. [address], [id number] , [place]. tel: [phone] Referring Provider: Chelsea Logan, [facility] [address], [place], [address]. tel:[phone] OFFICE WNCIL-PER-NZ TAILED [facility], [address], [place], [place], [address] , [place] tel: [phone] [facility] Asthma Allergy [place] asthma (chief complaint) Asthma-con trol (chief complaint) allergies (chief complaint) Moderate persistent asthma, uncomplicatedAllerg ic rhinitis due to pollenAllergic rhinitis due to animal hair or dander Oct- 9 Gonzalez Irizarry. [address], [id number] , [place]. tel:[phone] Referring Provider: Francisco Javier العلي, [address], [place], [address] . tel:[phone] OFFICE VHFEE-JVJ-FI TAILED [facility], [address], [place], [address] , [place] tel: [phone] [facility] asthma (chief complaint) Asthma-con trol (chief complaint) allergies (chief complaint) Moderate persistent asthma, uncomplicatedAllerg ic rhinitis due to pollenAllergic rhinitis due to animal hair or dander Apr- 9 Gonzalez Irizarry. [address], [id number] , [place]. tel: [phone] Referring Provider: Francisco Javier العلي, [address] [place] [address] [address], [place], [address] . tel:[phone] [facility], [address], [place], [place], [address] , [place] tel: [phone] [facility] Moderate persistent asthma, uncomplicatedAllerg ic rhinitis due to pollenAllergic rhinitis due to animal hair or dander Gonzalez Irizarry. [address] [facility], [address], [id number] , [place]. tel: [phone] Referring Provider: Francisco Javier العلي, [address] [place] [address] [address], [place], [address] . tel:[phone] [facility], [address], [place], [place], [address] , [place] tel: [phone] [facility] Moderate persistent asthma, uncomplicatedAllerg ic rhinitis due to pollenAllergic rhinitis due to animal hair or dander 8 Gonzalez Irizarry. [address] [facility], [address], [id number] , [place]. tel: [phone] Referring Provider: Francisco Javier العلي, [address] [place] [address] [address], [place], [address] . tel:[phone] [facility], [address], [place], [place], [address] , [place] tel: [phone] [facility] Allergic rhinitis due to pollenAllergic rhinitis due to animal hair or danderMild persistent asthma, uncomplicated 7 Silvestre Wylie . [address] [facility], [address], [id number] , [place]. tel: [phone] Referring Provider: Juan C Roth, [address] [place] [address], [address] . tel:[phone] [facility], [address], [place], [place], [address] , [place] tel: [phone] [facility] Mild persistent asthma, uncomplicatedAllerg ic rhinitis due to pollenAllergic rhinitis due to animal hair or dander Jorge-0 3 7 Silvestre Wylie . [address], [id number] , . tel: [phone] Referring Provider: Juan C Roth, [address] [place] [address], [address] . tel:[phone] [facility], [address], [place], [place], [address] , tel: [phone] [facility] Mild persistent asthma, uncomplicatedAllerg ic rhinitis due to pollenAllergic rhinitis due to animal hair or dander Dimitrios- 6 Gonzalez Irizarry. [address], [id number] , . tel: [phone] Referring Provider: Chelsea Logan, [address], [place], [address]. tel:[phone] [facility], [address], [place], [place], [address] , tel: [phone] [facility] Mild persistent asthma, uncomplicatedAllerg ic rhinitis due to pollenAllergic rhinitis due to animal hair or dander Dec-3 5 Gonzalez Irizarry. [address], [id number] , . tel: [phone] Referring Provider: Chelsea Logan, [address], [place], [address]. tel:[phone] [facility], [address], [place], [place], [address] , tel: [phone] [facility] INTRINSIC ASTHMA, UNSPECIFIEDAllergic rhinitis due to other allergen Mar-0 5 Gonzalez Irizarry. [address], [id number] , . tel: [phone] Referring Provider: Samantha Nixon, [address], [place], [address]. [phone] [facility], [address], [place], [address] , tel: [phone] [facility] INTRINSIC ASTHMA, UNSPECIFIEDAllergic rhinitis due to other allergenAcute atopic conjunctivitis Gonzalez Irizarry. [address] [place] [address], [id number] , . tel: [phone] Referring Provider: Samantha Nixon [address] [facility] [address], [place], [address]. tel:[phone] [facility], [address], [place], [place], [address] , tel: [phone] [facility] INTRINSIC ASTHMA, UNSPECIFIEDAllergic rhinitis due to other allergenAcute atopic conjunctivitis 3 Gonzalez Irizarry. [address] [place] [address], [id number] , . tel: [phone] Referring Provider: Samantha Nixon [address] [facility] [address], [place], [address]. tel:[phone] Family History Family Member Type Diagnosis Age At Onset Brother Problem (finding) Allergies, environmenta l Payers Payer name Insurance type Covered constitution party ID Leila giron(s) [facility] [employer] ACCOUNTS CI [id number] Social History Type Description Quantity Date Captured Comments Sex Female Smoking Status No Information Chief Complaint And Reason For Visit No Information Reason For Referral Reason For Referral No Information Plan Of Treatment Date Type Action Status Appointment Mychal Lisbeth 1 Yr PFT B OOKED History Of Present Illness Encounter Date Complaint History Of Prese nt Illness Asthma & Allergies Lisbeth is a 24 year old seen for follow-up of her diagnosis of asthma and allergies.Lisbeth is happy to report that she is doing well. 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 Her asthma is well-controlled despite all the heat & all the activities. She has no symptoms of cough, wheezing or shortness of breath. She takes Symbicort 2 puffs twice a day & there has been no albuterol use. . There has been no ED visits, hospitalization or steroid bursts for asthma-related symptoms. ACT Score = 25Shyahaira feels that her allergies are the same - she has mild drainage. She feels that it is manageable. She has tried Zyrtec & Vero but Claritin works the best. If she has more symptoms, she will take Benadryl in addition to her daily Claritin. She takes Claritin as needed for her allergy symptoms and is not taking Flonase because she does not like nasal sprays. She has 2 dogs at her mom's house.She is graduate school at [employer] for special education.No fevers, vomiting or diarrhea.05/24/2021 Skin Testing: Allergens: TREES, GRASS, WEED/RAGWEED, MOLD (Alternaria), CAT, and DOG dander Asthma & Allergies Lisbeth is a 23 [...] COVID infections. 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 Comments: Allerg ens: TREES, GRASS, WEED/RAGWEED, [...] sinusitis in the interim. allergy f/u asthma Comments: Last o ffice visit 04/05/22 and before this on 10/17/21. Remains on Symbicort 160/4.5, 2 puffs twice daily with good control. Proair seldom now even for exercise. 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 Had flu shot this fallVaccinated for COVID x 2 No COVID infections. 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 asthma asthma-control allergy f/u Comments: Last o ffice visit 10/17/21 and before this on 05/24/21 (testing) Remains on Symbicort 160/4.5, 2 puffs twice daily with good control. Proair seldom now. Cristhian this fall moving on to [employer] instead of [employer] (and still exercising but will not be playing soccer)Had flu shot last fall and has been vaccinated for COVID x 2 (Pfizer) but no booster. No COVID infection. 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 Comments: Allerg ens: TREES, GRASS, WEED/RAGWEED, MOLD [...] No sinusitis in the interim. allergies asthma (comments) Last office vi sit 05/24/21 (testing) and before this on 04/25/21Remains on Symbicort 160/4.5, 2 puffs twice daily with good control. Proair seldom now. Has sore throat a couple of weeks ago and some increase in SOB. Went to and treated with antibiotics (neg for strep, flu, covid though)Lesly. in fall again at [employer] on soccer scholarship and usually in the dorm (no pets). Then will be on to [employer] in instead (?still some soccer)Had flu shot again this fall and has been vaccinated for COVID x 2 (Pfizer) Went to [employer] for soccer this past season. allergies (comments) [...] outside. No sinusitis in the interim. asthma Asthma-control Lisbeth was see n today for [...] on 04/25/2021. Results - MILDLY OBSTRUCTED.. allergies (comments) Last office visit 04/25/21 and [...] dailyTakes Proair before soccer with good results allergies asthma (not seen for this today) allergies Asthma-control Lisbeth was see n today [...] performed on 10/05/2020. Results - MILDLY OBSTRUCTED. asthma (comments) Last office vi sit 10/05/20 and before this on 04/20/20. Remains on Symbicort 160/4.5, 2 puffs twice daily More asthma trouble spring likely triggered by increase in allergen exposures.Takes Proair before soccer with good results - but none recently out of seasonShe denies nocturnal or diamond sizer symptomsNo problems with URIs usually.Lesly. at [employer] on soccer scholarship (Jun - Jul) [...] and then referred to Speech Therapy in [place] (01/05/21). Got better on own and with treatment of her allergy symptoms. allergies (comments) Allergens: TREES, CAT, and DOG only (03/11/13) Indoor dogs x 2 (not in bedroom). Walks the dogs. Not around dad's cat much. Through summer does dog walking and [employer] jobs. Also works at [employer].Uses Loratadine 10 mg once daily year round with good results. In past used Fluticasone nasal spray 1 puff each nostril prn (off now) for increased symptoms this spring. More difficulty with tree pollen this spring (spent more time inside) but not on soccer fieldNo sinusitis in the interim. asthma allergies asthma (comments) Last office vi sit 04/20/20 [...] recently out of seasonShe denies nocturnal or diamond sizer symptomsNo problems with URIs usually.Fresh at [employer] on soccer scholarship, but now virtual [...] on daily allergy medications (Fluticasone and Loratadine). allergies (comments) Allergens: TREES, CAT, and DOG [...] performed on 04/20/2020. Results - MILDLY OBSTRUCTED. asthma Asthma-control Lisbeth was see n today for [...] on 10/26/2019. Results - WITHIN NORMAL LIMITS. asthma allergies asthma (comments) Last office vi [...] results (none needed recently)She denies nocturnal or diamond sizer symptomsNo problems with URIs usually.Went to [employer] in the fall (still played soccer on scholarship) - defense.Had [...] dad's cat much.No sinusitis in the interim. allergies asthma (comments) Last office vi sit 04/16/19 [...] again in 12/24) She denies nocturnal or diamond sizer symptomsNo problems with URIs usually.Going to [employer] in the fall (will still play soccer there for 2 [...] around dad's cat.No sinusitis in the interim. Asthma-control Lisbeth was [...] asthma asthma (comments) Last office vi sit 09/15/18 and before this on 03/27/18 Using Advair 100/50, 1 click BID with good adherence, but will have increased symptoms if just misses one doseAlso had more trouble this spring with asthma likely triggered by increase in allergen exposure.Uses Proair before soccer with good results as a precaution and for cough. She denies nocturnal or diamond sizer symptomsNo problems with URIs usually.Senior in next fall then to [employer] following year.Had flu shot last fall. [...] maria dolores - Recommend continui ng with mold mitigation. Related to Allergy to mold - Recommend clinical ly monitoring & treating accordingly.- For the allergic rhinitis, recommend Zyrtec 10 mg/Vero 180 mg/Xyzal 5 mg once a day.- For the nasal congestion, recommend Nasacort 2 sprays each nostril once a day.- Advised that Zyrtec/Vero/Xyzal may be increased to twice a day for high-dose therapy for break-thru allergy symptoms or a seasonal exacerbation of allergies. Related to Allergic rhinitis due to pollen - Recommend continui ng with pet dander avoidance. Related to Allergic rhinitis due to animal hair or dander - Discussed that Citlalli tracy's spirometry showed no evidence of intrathoracic airway obstruction with an FEV1 of 3.12 L (98%) and there is no significant bronchodilatory response of -0.8% with an FEV1 3.10 (97%). Lung age of [age] years old. There is no evidence to suggest an underlying needed for an ICS. - For the asthma- recommend continuing with the current treatment plan with Symbicort 160/4.5 2 puffs twice a day, rinse mouth with each dose & ProAir 2 puffs every 4-6 hours as needed and treat accordingly. Related to Moderate persistent asthma, uncomplicated - Recommend continui ng with pet dander avoidance. Related to Allergic rhinitis due to animal hair or dander - Recommend continui ng with mold mitigation. Related to Allergy to mold - We reviewed approp riate environmental control measures for your rhinitis.- Please [...] days (you can monitor mold counts at http://www.aaaai.org/global/lkq-qfhfow-c ounts.aspx or http://pollen.aaaai.org/)At the end of a [...] days (you can monitor pollen counts at http://www.aaaai.org/global/ykj-xlhvcu-y ounts.aspx or http://pollen.aaaai.org/)Pollen counts are typically lower [...]
[2025-09-24] VITALS (7 sets, daily range): BP systolic 115–127; BP diastolic 57–76; PULSE 79–100; RESP 13–24; TEMP 36.6; O2SAT 95–100
--- NOTE | ~2025-09-24 | CT_ITS ---
EXAMINATION: CT abdomen pelvis w con DATE: 09/24/2025 12:07 INDICATION: Right lower quadrant abdominal pain. TECHNIQUE: Computed tomography (CT) of the abdomen and pelvis was performed with 100 mL Omnipaque-350 intravenous contrast. Automated exposure control and iterative reconstruction technique were employed. The dose-length product was 232.37 mGy-cm. COMPARISON: 06/09/2024 FINDINGS: Visualized lower lungs are clear. Heart size is normal. No pericardial or pleural effusion. Liver, gallbladder, spleen and pancreas, bilateral adrenal glands and kidneys are normal. Fluid extending throughout the colon to the rectum consistent with nonspecific diarrhea. No bowel obstruction. Normal rogelio endix. Bladder is normal. 1.6 similar right adnexal cyst. 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 No free intraperitoneal gas or fluid. No pathologically enlarged abdominal or pelvic lymphadenopathy. Mild lumbar levocurvature with mild spondylosis. IMPRESSION: 1. Fluid throughout the colon consistent with nonspecific diarrhea. No other acute intra-abdominal/pelvic process. Reviewed, dictated and finalized at location A. DYNAMICS PROFESSOR IMPRESSION: 1. Fluid throughout the colon consistent with nonspecific diarrhea. No other ac michelle intra-abdominal/pelvic process.
--- OUTSIDE RECORDS SUMMARY | 2025-09-24 09:58 | XMS_ITS | Encounter Summary ---
Author Organization [facility] Address [address] [facility] Attn: [place] [address] Care Team Providers Care Mining Helper Name Role Phone Unavailable Primary Care Provider Unavailabl e Encounter Details Date Type Department Care Team (Late st Contact Info) Description 2001 Inpatient Historical Taya Puckett MD NO ADDRESS ON FILE Danae Shore MD [address] [place] [address] SINGL BORN IN HOSP-NO C/DELIVERY (Primary Dx) Social History Tobacco Use Types Packs/Day Years Used Date Smoking Tobacco: Never Assessed Comments Unknown Sex and Gender Information Value Date Recorded Sex Assigned at Not on file Legal Sex Female 5:03 AM 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
--- OUTSIDE RECORDS SUMMARY | 2025-09-24 09:58 | XMS_ITS | Clinical Summary ---
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
--- OUTSIDE RECORDS SUMMARY | 2025-09-24 09:58 | XMS_ITS | Clinical Summary ---
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
--- OUTSIDE RECORDS SUMMARY | 2025-09-24 09:58 | XMS_ITS | Clinical Summary ---
Author Organization [facility] Address [address] [place] [address] Care Team Providers Care Communication Studies Professor Name Role Phone Chelsea Logan MD Primary Care Provider [phone] Chelsea Logan MD Unavailable Source Comments [facility],non-owned Affiliates and Associated Physician Practices is amultiple site organization consisting of ambulatory clinics and hospital sitesin [place], [place], [place] and [place]. This disclosure is being madepursuant to the Care Everywhere program and may not contain all information available regarding this patient. Last updated 18.[facility] Allergies No known active allergies Medications * Be aware that medications may not be up to date on this document. Alwaysverify current medications with the patient. loratadine (CLARITIN) 10 MG tablet Take 10 mg by mouth once daily Active PROAIR HFA 108 (90 BASE) MCG/ACT inhaler INL 2 PFS PO Q 4 TO 6 H PRN 0 8 Active ADVAIR DISKUS 100-50 MCG/DOSE inhaler INL 1 PUFF PO Q 12 H 5 8 Active desmopressin (DDAVP) 0.2 MG tabletIndication s:Nocturnal Enuresis Take 3 tablets by mouth at bedtime Reasons: Bedwetting 90 tablet 5 8 Active fluticasone propionate (FLONASE) 50 MCG/ACT nasal spray [place] 2 sprays into each nostril once daily 1 bottles 5 8 Active Additional Information Patient not taking.Reported on 09/28/2020 levonorgestrel-e thinyl estradiol (ALESSE; LEVLITE; AVIANE; LUTERA; LESSINA; SRONYX) 0.1-20 MG-MCG tablet 0 Active SYMBICORT 160-4.5 MCG/ACT inhaler Inhale 2 puffs by mouth 2 times daily 0 Active ADVAIR DISKUS 250-50 MCG/DOSE inhaler Inhale 1 puff by mouth as needed 9 Active VENTOLIN HFA 108 (90 Base) MCG/ACT inhaler Inhale 1 puff by mouth as needed 0 Active Loratadine 10 MG Take 1 tablet by mouth once daily Active desmopressin (DDAVP) 0.01 % nasal spray [place] 1 spray into the nose at bedtime 5 mL 11 0 Active mirabegron ER 24hr (MYRBETRIQ) 25 MG tabletIndication s:Overactive Bladder,Urinary Incontinence Take 1 tablet by mouth every morning Reasons: Overactive Bladder, Urinary Incontinence 30 tablet 11 0 Active imipramine (TOFRANIL) 10 MG tablet Start with 1 tablet at night for 4 nights then increase to 2 tabs at night 60 tablet 3 0 Active Active Problems Problem Noted Date Diagnosed [...] of Binge Drinking Not on file 05/05 Comments No Sex and Gender Information Value Date Recorded Sex Assigned at Not on file 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 Gender Identity Not on file Sexual Orientation [...] 11:03 AM CDT Height 160 cm (5' 3) 05/26/2020 11:03 AM CDT Body Mass Index 22.5 05/26/2020 11:03 AM CDT Plan of Treatment Health Maintenance Due Date Last Done Comments HIV SCREENING 2016 HPV VACCINE (1 - 3-dose series) 2016 CHLAMYDIA/GONORRHEA SCREENING 2017 MENINGOCOCCAL (Group B) VACC INE SHARED DECISION-MAKING (1 of 2 - Standard) 2017 HEPATITIS C SCREENING 11/15/2019 DTAP/TDAP/TD VACCINES (1 - Tdap) 2020 HEPATITIS B VACCINE (1 of 3 - 19+ 3-dose series) 2020 DEPRESSION SCREENING 11/04/2024 COVID-19 VACCINE (1 - 2023-2 5 season) 2025 INFLUENZA VACCINE (#1) 2025 ZOSTER VACCINE (1 of 2) 2051 HIB VACCINE Aged Out No longer eligi ble based on patient's age to complete this topic MENINGOCOCCAL GROUPS A/C/Y/W VACCINE Aged Out No longer eligible b ased on patient's age to complete this topic PNEUMOCOCCAL VACCINE Aged Out No long er eligible based on patient's age to complete this topic Insurance [facility] [place] [id number] [facility] [place] [id number] [facility] Care Teams Communication Studies Professor Relationship Specialty Start Date End Date Chelsea Logan MD [address] [facility] [address] [place] [id number] PCP - General 05/17/20 Chelsea Logan MD [address] [facility] [address] [place] [id number] Pediatrics 05/17/20
--- OUTSIDE RECORDS SUMMARY | 2025-09-24 09:58 | XMS_ITS | Encounter Summary ---
Author Organization [facility] Address [address] [place] [address] Care Team Providers Care Plumber'S Assistant Name Role Phone Unavailable Primary Care Provider Unavailabl e Encounter Details Date Type Department Care Team (Late st Contact Info) Description 2001 Outpatient Historical [facility] Hearing Services [facility] [address] [place] [address] [id number] [place] [address] Belkys Chopra AU.D [address] [place] [phone] Social History Tobacco Use Types Packs/Day Years Used Date Smoking Tobacco: Never Assessed Comments Unknown Sex and Gender Information Value Date Recorded Sex Assigned at Not on file 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
--- OUTSIDE RECORDS SUMMARY | 2025-09-24 09:58 | XMS_ITS | Clinical Summary ---
Author Organization [facility] Address [address] [address] Phone Care Team Providers Care Machine Filler Shredder Name Role Phone Noemi Perez MD Primary Care Provider Elisha Hathaway MD Unavailable [phone] Allergies Active Allergy Reactions Criticality Noted Date [...] Date Resolved Date Coccydynia 02/09/2016 08/09/2022 Immunizations Immunization Administration Dates Next Due DTaP, Unspecified 03/03/2007, [...] Comments Blood Pressure 106/58 12/17/2023 11:07 AM PROGRAMMER DEVELOPER Pulse 109 12/17/2023 11:07 AM PROGRAMMER DEVELOPER Temperature 36.8 C (98.3 F) 12/17/2023 11:07 AM PROGRAMMER DEVELOPER Respiratory Rate 22 12/17/2023 11:07 AM PROGRAMMER DEVELOPER Oxygen Saturation 97% 12/17/2023 11:07 AM PROGRAMMER DEVELOPER Inhaled Oxygen Concentration - - Weight 72.1 kg (159 lb) 12/17/2023 11:07 AM PROGRAMMER DEVELOPER Height 160 cm (5' 3) 12/17/2023 11:07 AM PROGRAMMER DEVELOPER Body Mass Index 28.17 12/17/2023 11:07 AM PROGRAMMER DEVELOPER Plan of Treatment Health Maintenance Due Date Last Done Comments Cervical Cancer Screening 2001 Chlamydia and Gonorrhea (GC/ CT) Screening 2001 Hepatitis C Screening 2001 Pneumococcal vaccine <65 (1 of 1 - PPSV23, PCV20, or PCV21) 2007 11/23/2002, 05/21/2002, 03/24/2002, Additional history exists Depression Screening 10/21/2024 10/21/2023, 08/09/20 22 Regular Well Visit/Exam 18-64 10/21/2024 10/21/2023, 08/09/2022 Covid-19 Vaccine (3 - 2024-2 6 season) 2025 06/17/2021, 05/27/2021 Influenza Vaccine (#1) 2025 , 08/16/2022, 08/09/2020, Additional history exists DTaP/Tdap/Td Vaccine (8 - Td or Tdap) 07/03/2032 07/03/2022, 05/15/2012, 03/03/2007, Additional history exists Hepatitis B Screening Completed 11/23/2002 , 03/24/2002, 01/21/2002, Additional history exists Varicella Vaccines Discontinued 02/16/2003 HPV Vaccines Completed 08/10/2016, 07/25/2015 Meningococcal B Vaccine Completed 03/26/2019, 12/25 Insurance [facility] Care Teams Machine Filler Shredder Relationship Specialty Start Date End Date Noemi Perez MD PCP - General Family Practice 08/06/22 Elisha Hathaway MD [address] [address] Referring Physician Gynecology 08/09/22
--- OUTSIDE RECORDS SUMMARY | 2025-09-24 09:58 | XMS_ITS | Encounter Summary ---
Author Organization [facility] Address [address] [place] [address] Care Team Providers Care Program Lead Name Role Phone Unavailable Primary Care Provider Unavailabl e Encounter Details Date Type Department Care Team (Late st Contact Info) Description 2001 Outpatient Historical [facility] Pediatrics - [facility] [address] [facility] [address] [address] Taya Puckett MD NO ADDRESS ON FILE Social History Tobacco Use Types Packs/Day Years Used Date Smoking Tobacco: Never Assessed Comments Unknown Sex and Gender Information Value Date Recorded Sex Assigned at Not on file 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
[2025-09-24 11:11] LABS: Add Urine Microscopic? YES; Appearance Urine Cloudy (Clear); Glucose Urine UA Negative (Negative); Leukocyte Esterase Ur 1+ LEU/UL (Negative); Nitrate Urine Negative (Negative); Specific Grav Ur 1.029 (1.001-1.035)
[2025-09-24] MEDS: SODIUM CHLORIDE 0.9% IV 1,000 ML 999 ML IV CONT (11:13)
[2025-09-24] MEDS: ONDANSETRON INJ 4 MG/2 ML VIAL IV PUSH (11:14)
[2025-09-24] MEDS: MORPHINE SULFATE (*CRX) 4 MG/ML INJ IV PUSH (11:15)
--- OUTSIDE RECORDS SUMMARY | 2025-09-24 11:15 | XMS_ITS | Encounter Summary ---
Author Organization [facility] Address [address] [place] [address] Care Team Providers Care Baling Machine Tender Name Role Phone Unavailable Primary Care Provider Unavailabl e Encounter Details Date Type Department Care Team (Late st Contact Info) Description 2001 Outpatient Historical [facility] Hearing Services [facility] [id number] [place] [address] Belkys Chopra AU.D [address] [place] [phone] Social History Tobacco Use Types Packs/Day Years Used Date Smoking Tobacco: Never Assessed Comments Unknown Sex and Gender Information Value Date Recorded Sex Assigned at Not on file 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
--- OUTSIDE RECORDS SUMMARY | 2025-09-24 11:15 | XMS_ITS | Encounter Summary ---
Author Organization [facility] Address [address] [facility] Attn: [place] [address] Care Team Providers Care Paper Wood Cutter Name Role Phone Unavailable Primary Care Provider Unavailabl e Encounter Details Date Type Department Care Team (Late st Contact Info) Description 2001 Inpatient Historical Taya Puckett MD NO ADDRESS ON FILE Danae Shore MD [address] [place] [address] SINGL BORN IN HOSP-NO C/DELIVERY (Primary Dx) Social History Tobacco Use Types Packs/Day Years Used Date Smoking Tobacco: Never Assessed Comments Unknown Sex and Gender Information Value Date Recorded Sex Assigned at Not on file 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
--- OUTSIDE RECORDS SUMMARY | 2025-09-24 11:15 | XMS_ITS | Clinical Summary ---
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
--- OUTSIDE RECORDS SUMMARY | 2025-09-24 11:15 | XMS_ITS | Encounter Summary ---
Author Organization [facility] Address [address] [place] [address] Care Team Providers Care Plaster Tender Name Role Phone Unavailable Primary Care Provider Unavailabl e Encounter Details Date Type Department Care Team (Late st Contact Info) Description 2001 Outpatient Historical [facility] Pediatrics - [facility] [address] [facility] [address] [address] Taya Puckett MD NO ADDRESS ON FILE Social History Tobacco Use Types Packs/Day Years Used Date Smoking Tobacco: Never Assessed Comments Unknown Sex and Gender Information Value Date Recorded Sex Assigned at Not on file 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
--- OUTSIDE RECORDS SUMMARY | 2025-09-24 11:15 | XMS_ITS | Clinical Summary ---
Author Organization [facility] Address [address] [address] Phone Care Team Providers Care Maintenance Man Name Role Phone Noemi Perez MD Primary Care Provider Elisha Hathaway MD Unavailable [phone] Allergies Active Allergy Reactions Criticality Noted Date [...] Comments Blood Pressure 106/58 12/17/2023 11:07 AM CARTOGRAPHIC DESIGNER Pulse 109 12/17/2023 11:07 AM CARTOGRAPHIC DESIGNER Temperature 36.8 C (98.3 F) 12/17/2023 11:07 AM CARTOGRAPHIC DESIGNER Respiratory Rate 22 12/17/2023 11:07 AM CARTOGRAPHIC DESIGNER Oxygen Saturation 97% 12/17/2023 11:07 AM CARTOGRAPHIC DESIGNER Inhaled Oxygen Concentration - - Weight 72.1 kg (159 lb) 12/17/2023 11:07 AM CARTOGRAPHIC DESIGNER Height 160 cm (5' 3) 12/17/2023 11:07 AM CARTOGRAPHIC DESIGNER Body Mass Index 28.17 12/17/2023 11:07 AM CARTOGRAPHIC DESIGNER Plan of Treatment Health Maintenance Due Date [...] Meningococcal B Vaccine Completed 03/26/2019, 12/25 Insurance [facility] [employer] Address: [address] [address] [place] [address] [facility]PPO Address: [address] [address] [place] [address] Care Teams Maintenance Man Relationship Specialty Start Date End Date Noemi Perez MD PCP - General Family Practice 08/06/22 Elisha Hathaway MD [address] [address] Referring Physician Gynecology 08/09/22
--- OUTSIDE RECORDS SUMMARY | 2025-09-24 11:15 | XMS_ITS | Clinical Summary ---
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
--- OUTSIDE RECORDS SUMMARY | 2025-09-24 11:15 | XMS_ITS | Clinical Summary ---
Author Organization [facility] Address [address] [facility] [place] [address] Care Team Providers Care Countersinker Balance Screw Hole Name Role Phone Chelsea Logan MD Primary Care Provider [phone] Chelsea Logan MD Unavailable Source Comments [facility],non-owned Affiliates and Associated Physician Practices is amultiple site organization consisting of ambulatory clinics and hospital sitesin [place], [place], [place] and [place]. This disclosure is being madepursuant to the Care Everywhere program and may not contain all information available regarding this patient. 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 [place] [id number] PCP - General 05/17/20 Chelsea Logan MD [address] [facility] [address] [place] [id number] Pediatrics 05/17/20
[2025-09-24 11:16] LABS: Hematocrit 39.7 % (37.0-47.0); Hemoglobin 13.8 g/dL (12.0-15.0); Immature Granulocyte Percent A 0.2 % (0-0.5); Lymphocytes Absolute Auto 0.52 K/mm3 (0.9-3.2); Mean Corpuscular HGB Conc 34.8 g/dl (32-36); Mean Corpuscular Hemoglobin 30.1 pg (26-34); Mean Corpuscular Volume 86.7 fl (80-100); Nucleated Red Blood Cells Absolute Auto 0.000 K/mm3 (0.0-0.012); Nucleated Red Blood Cells Perc 0.0 % (0.0-0.2); Platelet Count Result 175 k/mm3 (150-375); Red Blood Count 4.58 M/mm3 (4.2-5.4); White Blood Count 8.9 K/mm3 (4.5-10.0)
[2025-09-24 11:42] LABS: Alanine Aminotransferase 17 U/L (6-35); Albumin Level 4.5 g/dL (3.5-5.1); Alkaline Phosphatase 63 U/L (38-126); Anion Gap 10 mmol/L (4-12); Aspartate Amino Transferase 23 U/L (14-36); Bilirubin,Total 1.4 mg/dL (0.2-1.3); Blood Urea Nitrogen 17 mg/dL (7-17); Calcium 8.9 mg/dL (8.4-10.2); Carbon Dioxide 19 mmol/L (22-30); Chloride 106 mmol/L (98-107); Estimated CRCL calculation 88 ml/min; Estimated Glomerular Filt Rate > 60; Glucose 78 mg/dL (65-110); Lipase 66 U/L (23-300); Potassium 3.8 mmol/L (3.4-5.0); Sodium 135 mmol/L (137-145); Total Protein 7.3 g/dL (6.3-8.2)
--- NOTE | 2025-09-24 13:32 | ED.GENADULT ---
HPI - General Adult General Chief complaint: Abdominal Pain Stated complaint: R/O appendicitis Time Seen by Provider: 09/24/25 10:51 History of Present Illness HPI narrative: Patient is a 24-year-old female who presents to the ER with concern for appendicitis. Mild abdominal discomfort last couple days but then developed diarrhea and tenderness the right lower quadrant this morning. No fevers or chills. 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 She is round germs. No blood in stool. No history of ovarian cyst. Related Data Home Medications ?Medication ?Instructions ?Recorded ?Confirmed ?Last Taken ?Type budesonide-formoterol HFA 160 See Rx Instructions .Route .COMPLEX 06/09/24 08/08/24 Unknown History mcg-4.5 mcg/actuation aerosol inhaler levonorgestrel-ethinyl estradiol 1 tablet PO DAILY 06/09/24 08/08/24 Unknown History 0.1 mg-20 mcg tablet loratadine 10 mg tablet (Claritin) 10 mg PO DAILY 06/09/24 08/08/24 Unknown History Allergies Allergy/AdvReac Type Severity Reaction Status Date / Time No Known Allergies Allergy Mild Verified 09/24/25 09:58 Review of Systems Review of Systems: All systems reviewed & are unremarkable except as noted in HPI and below Constitutional: Constitutional: Reports no additional constitutional complaints ENT: Reports system reviewed and no additional complaints, except as documented Cardiovascular: Cardiovascular: Reports no additional cardiovascular complaints Respiratory: Respiratory: Reports no additional respiratory complaints Integumentary/Breasts: Skin/Breast: Reports system reviewed and no additional complaints, except as docu Neurologic: Reports system reviewed and no additional complaints, except as documented PMFSH Past Medical History Medical History Patient denies medical problems Surgical History Surgical History No pertinent past surgical history Social History Social History Smoking status: Never smoker Exam Narrative: GENERAL: Well-appearing, well-nourished, and in no acute distress. HEAD: Normocephalic, atraumatic. ENT: Mucous membranes moist. CHEST: Clear to auscultation. No respiratory distress. HEART: Regular rate and rhythm. Normal peripheral pulses. ABDOMEN: Soft, tender to palpation right lower quadrant without guarding, nondistended, normal active bowel sounds. EXTREMITIES: Normal range of motion. No edema. SKIN: Warm, dry, no rash. NEURO: Alert and oriented x3. PSYCH: Normal mood and affect. Course Course Emergency Course: Patient feels improved. Still has a few episodes of diarrhea. Labs unremarkable. CT with diarrheal illness. Urine was a poor sample and will not be treated. Vital Signs Vital signs: Vital Signs Temperature 98 F 09/24/25 10:01 Pulse Rate 93 09/24/25 10:01 Respiratory Rate 16 09/24/25 10:01 Blood Pressure 127/73 09/24/25 10:01 Pulse Oximetry 95 09/24/25 10:01 Oxygen Delivery Room Air 09/24/25 10:01 Temperature 98 F 09/24/25 10:01 Pulse Rate 89 09/24/25 13:16 Respiratory Rate 13 09/24/25 13:16 Blood Pressure 115/67 09/24/25 13:16 Pulse Oximetry 98 09/24/25 13:16 Oxygen Delivery Room Air 09/24/25 10:01 Medical Decision Making Vital Signs Vital Signs: Vital Signs Temperature 98 F 09/24/25 10:01 Pulse Rate 93 09/24/25 10:01 Respiratory Rate 16 09/24/25 10:01 Blood Pressure 127/73 09/24/25 10:01 Pulse Oximetry 95 09/24/25 10:01 Oxygen Delivery Room Air 09/24/25 10:01 Temperature 98 F 09/24/25 10:01 Pulse Rate 89 09/24/25 13:16 Respiratory Rate 13 09/24/25 13:16 Blood Pressure 115/67 09/24/25 13:16 Pulse Oximetry 98 09/24/25 13:16 Oxygen Delivery Room Air 09/24/25 10:01 Lab Data Lab results reviewed: Yes I reviewed the patient's lab results. 09/24/25 11:09 09/24/25 11:09 Labs: Lab Results 09/24/25 09/24/25 Range/Units 10:15 11:09 WBC 8.9 (4.5-10.0) K/mm3 RBC 4.58 (4.2-5.4) M/mm3 Hgb 13.8 (12.0-15.0) g/dL Hct 39.7 (37.0-47.0) % MCV 86.7 (80-100) fl MCH 30.1 (26-34) pg MCHC 34.8 (32-36) g/dl RDW 11.4 L (11.5-14.5) % Plt Count 175 (150-375) k/mm3 MPV 10.1 (7.4-10.4) fl Immature Gran % (Auto) 0.2 (0-0.5) % Neut % (Auto) 89.0 H (45.5-73.1) % Lymph % (Auto) 5.8 L (18.3-44.2) % [place] % (Auto) 4.2 (2.6-8.5) % Eos % (Auto) 0.4 (0-4.4) % Baso % (Auto) 0.4 (0.2-1.2) % Lymph # (Auto) 0.52 L (0.9-3.2) K/mm3 [place] # (Auto) 0.4 (0.1-0.6) K/mm3 Eos # (Auto) 0.0 (0-0.3) K/mm3 Baso # (Auto) 0.0 (0.0-0.1) K/mm3 Abs Immat Gran (auto) 0.02 (0.00-0.031) K/mm3 Absolute Neuts (auto) 7.9 H (1.3-6.7) K/mm3 Absolute Nucleated RBC 0.000 (0.0-0.012) K/mm3 Nucleated RBC % 0.0 (0.0-0.2) % Sodium 135 L (137-145) mmol/L Potassium 3.8 (3.4-5.0) mmol/L Chloride 106 (98-107) mmol/L Carbon Dioxide 19 L (22-30) mmol/L Anion Gap 10 (4-12) mmol/L BUN 17 D (7-17) mg/dL Creatinine 0.71 (0.7-1.0) mg/dL Estim Creat Clear Calc 88 ml/min Estimated GFR > 60 (59 - ) Glucose 78 (65-110) mg/dL Calcium 8.9 (8.4-10.2) mg/dL Total Bilirubin 1.4 H (0.2-1.3) mg/dL AST 23 (14-36) U/L ALT 17 (6-35) U/L Alkaline Phosphatase 63 (38-126) U/L Total Protein 7.3 (6.3-8.2) g/dL Albumin 4.5 (3.5-5.1) g/dL Lipase 66 (23-300) U/L Urine Color Dark yellow (Yellow) Urine Appearance Cloudy H (Clear) Urine pH 5.0 (5.0-9.0) Ur Specific [place] 1.029 (1.001-1.035) Urine Protein Negative (Negative) mg/dL Urine Glucose (UA) Negative (Negative) mg/dL Urine Ketones 1+ H (Negative) mg/dL Ur Blood (Man) Negative (Negative) Urine Nitrate Negative (Negative) Urine Bilirubin Negative (Negative) Urine Urobilinogen 0.2 (<2.0) mg/dL Leukocyte Esterase Rfl 1+ H (Negative) ALE/UL Urine RBC 0-2 (0-2) /hpf Urine WBC 11-20 H (0-3) /hpf Ur Squamous Epith Cells Many H (Few) /hpf Urine Bacteria 3+ H /hpf Urine Casts 3-5 Imaging Data Radiologist's impression: ITS Impressions Abdomen/Pelvis CT 09/24/25 12:10 IMPRESSION: 1. Fluid throughout the colon consistent with nonspecific diarrhea. No other acute intra-abdominal/pelvic process. Discharge Plan Discharge Clinical Impression: Gastroenteritis Patient Disposition: Home Condition: Stable Instructions: Gastroenteritis (ED) Additional Instructions: Please drink plenty of fluids at home. Return to the emergency department if you develop high fevers, have persistent severe abdominal pain, or have bloody stools or vomit, as these could be signs of a more serious medical emergency. Return to the emergency department if you are unable to keep down liquids because of severe nausea/vomiting. Patient Language: Serbian Prescriptions: New simethicone 125 mg capsule 125 mg PO QID Qty: 20 0RF Rx Instructions: administer after meals and at bedtime ondansetron 4 mg tablet,disintegrating 4 mg PO Q6H PRN (Reason: nausea and vomiting) Qty: 10 0RF dicyclomine 20 mg tablet 20 mg PO QID Qty: 20 0RF No Action prednisone 50 mg tablet 50 mg PO DAILY Qty: 4 0RF Rx Instructions: First dose tomorrow morning famotidine [Pepcid] 40 mg tablet 40 mg PO DAILY Qty: 7 0RF levonorgestrel-ethinyl estrad 0.1-20 mg-mcg tablet 1 tablet PO DAILY loratadine [Claritin] 10 mg Tablet 10 mg PO DAILY budesonide-formoterol 160-4.5 mcg/actuation HFA aerosol inhaler See Rx Instructions .ROUTE .COMPLEX Rx Instructions: Rx Follow-up/Referrals: Li,Jr Garcia MD [Primary Care Provider, Unknown] - 1 Week
[2025-09-27 11:47] LABS: BEDSIDEPREGUCG Negative (Negative)
== END 2025-09-24 14:00 | disposition home or self-care (01) ==
PROVIDERS: Emergency Provider Emergency Medicine; PCP Family Medicine
DX: K52.9 Noninfective gastroenteritis and colitis, unspecified (principal)
CPT/HCPCS: 36415; 74177; 80053; 81001; 81025; 83690; 85025; 96361; 96374; 96375; 99284; J2270; J2405; J7030; Q9967